=== PATIENT | male | born 1930 | race African-American/Black ===

== ENCOUNTER 2017-09-17 11:59 | Inpatient (IN) | payer MEDICARE ==
--- NOTE | 2017-09-17 12:59 | ER Document Report ---
ED Fall - General Chief Complaint: Hip Pain Stated Complaint: FALL Time Seen by Provider: 09/17/17 12:10 Information source: Patient Notes: 86-year-old male but states yesterday he fell onto his right low hip and knee taking the trash cans. He walks with a cane at baseline. He states he just lost his balance. He denies any headache, lightheadedness, dizziness, chest pain, abdominal pain, either before or after the fall. He denies hitting his head. He complains of pain only to his right hip, thigh, and knee. EMS came out to his house yesterday and helped him into the house. Patient states pain with ambulation since that time. He does have a prosthetic right hip. TRAVEL OUTSIDE OF THE [place] IN LAST 30 DAYS: No - HPI Occurred: Yesterday Where: Home, Outdoors Context: Lost balance Associated symptoms: denies: Dazed/confused Location of injury/pain: Other - See above Quality of pain: Achy, Burning Severity: Moderate Pain Level: 2 Prehospital interventions: Other - See above - Related data Allergies/Adverse Reactions: aspirin Adverse Reaction (Verified 09/17/17 12:30) Anaphylaxis Past Medical History - General Information source: Patient - Social History Smoking Status: Former Smoker Cigarette use (# per day): No Chew tobacco use (# tins/day): No Smoking Education Provided: No Frequency of alcohol use: None Drug Abuse: None Family History: Reviewed & Not Pertinent Patient has suicidal ideation: No Patient has homicidal ideation: No - Past Medical History Cardiac Medical History: Reports: Hx Hypertension Renal/ Medical History: Denies: Hx Peritoneal Dialysis Past Surgical History: Reports: Hx Cardiac Surgery - CABG Review of Systems - Review of Systems Constitutional: denies: Fever EENT: denies: Eye discharge, Blurred vision, Nose discharge Cardiovascular: denies: Chest pain, Palpitations Respiratory: denies: Short of breath Gastrointestinal: denies: Abdominal pain, Vomiting Genitourinary: denies: Dysuria Musculoskeletal: denies: Back pain Skin: Other - no hives. denies: Rash Neurological/Psychological: Other - no slurred speech -: Yes All other systems reviewed and negative Physical Exam - Vital signs Vitals: Temp Pulse Resp BP Pulse Ox 98.2 F 64 16 175/62 H 99 09/17/17 12:06 09/17/17 12:06 09/17/17 12:06 09/17/17 12:06 09/17/17 12:06 Notes: Reviewed vital signs and nursing note as charted by RN. CONSTITUTIONAL: Alert and oriented and responds appropriately to questions. Well -appearing; well-nourished HEAD: Normocephalic; atraumatic EYES: PERRL; full extraocular range of motion ENT: Normal nose; no rhinorrhea; moist mucous membranes; pharynx without lesions noted NECK: Supple without meningismus; non-tender; no carotid bruits CARD: Regular rate and rhythm; no murmurs RESP: Normal chest excursion without splinting or tachypnea; breath sounds clear and equal bilaterally; no tenderness to the anterior posterior ribs ABD/GI: Normal bowel sounds; non-distended; soft, non-tender, no abdominal bruits or masses present BACK: The back appears normal and is non-tender to palpation EXT: Patient has some tenderness to the right knee, thigh, and right anterior hip. No obvious deformities present. Tenderness with both active and passive range of motion. Neurovascular intact to the right foot SKIN: No acute lesions noted NEURO: Patient has 5 out of 5 bilateral foot plantar and flexor extension PSYCH: The patient's mood and manner are appropriate. Grooming and personal hygiene are appropriate. Course - Re-evaluation Re-evalutation: 09/17/17 12:58 Given the above history and physical examination I will order an x-ray of the right hip, right femur, and right knee. I do not believe any CT imaging of the head or cervical spine is necessary at this time. 09/17/17 14:09 X-rays as recorded. There appears to be a hip fracture to the proximal right femur lateral to the prosthesis. This is consistent with exam. Orthopedics has been consulted and patient will be admitted to the hospitalist service. - Vital Signs Vital signs: Temp Pulse Resp BP Pulse Ox 98.2 F 64 16 175/62 H 99 09/17/17 12:06 09/17/17 12:06 09/17/17 12:28 09/17/17 12:09/17/17 12:06 Discharge - Discharge Clinical Impression: Closed right hip fracture Qualifiers: Encounter type: initial encounter Qualified Code(s): S72.001A - Fracture of unspecified part of neck of right femur, initial encounter for closed fracture Accidental fall Qualifiers: Encounter type: initial encounter Qualified Code(s): W19.XXXA - Unspecified fall, initial encounter Condition: Good Disposition: ADMITTED INPATIENT Admitting Provider: Hospitalist Unit Admitted: Medical Floor
--- NOTE | 2017-09-17 13:11 | RADIOLOGY REPORT (SQ) ---
EXAM DESCRIPTION: HIP RIGHT AP/LATERAL COMPLETED DATE/TIME: 09/17/2017 1:00 pm REASON FOR STUDY: bed 7 right hip COMPARISON: None. NUMBER OF VIEWS: Two views. TECHNIQUE: AP pelvis and additional frog-leg view of the right hip. LIMITATIONS: None. FINDINGS: MINERALIZATION: Normal. RIGHT HIP: Patient is status post right total hip replacement. The prosthesis appears well seated in the acetabulum and proximal femoral medullary canal. There is cortical interruption at the level of the proximal femoral metaphysis which I cannot exclude as an acute fracture. LEFT HIP: No fracture or dislocation. No worrisome bone lesions. PUBIS AND ISCHIUM: No fracture. PELVIS: No fracture. SACRUM: No fracture or dislocation. No worrisome bone lesions. LOWER LUMBAR SPINE: Degenerative changes are identified in the lower lumbar spine. SOFT TISSUES: Soft tissue calcifications are identified adjacent to the right hip prosthesis. OTHER: No other significant finding. IMPRESSION: Status post right total hip replacement. There is cortical interruption at the level of the proximal femoral metaphysis which I cannot exclude as an acute fracture. Clinical correlation i s recommended. Other findings as noted above TECHNICAL DOCUMENTATION: JOB ID: [id number] [employer]- All Rights Reserved Reading location - IP/workstation name: [email or web address] DIRECTOR PARTY PLAN [email or web address]
--- NOTE | 2017-09-17 13:12 | RADIOLOGY REPORT (SQ) ---
EXAM DESCRIPTION: KNEE RIGHT 4 VIEWS COMPLETED DATE/TIME: 09/17/2017 1:00 pm REASON FOR STUDY: bed 7 s/p fall +deformity COMPARISON: None. NUMBER OF VIEWS: Three views. TECHNIQUE: AP, lateral, and both oblique radiographic images acquired of the right knee. LIMITATIONS: None. FINDINGS: MINERALIZATION: Osteopenia. BONES: No acute fracture or dislocation. No worrisome bone lesions. 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 JOINT: No effusion. No chondrocalcinosis. Mild age-appropriate degenerative compromise of the knee joint compartments. OTHER: No other significant finding. IMPRESSION: No acute posttraumatic change. TECHNICAL DOCUMENTATION: JOB ID: [id number] [employer]- All Rights Reserved Reading location - IP/workstation name: [email or web address]
--- NOTE | 2017-09-17 13:12 | RADIOLOGY REPORT (SQ) ---
EXAM DESCRIPTION: FEMUR RIGHT COMPLETED DATE/TIME: 09/17/2017 1:00 pm REASON FOR STUDY: 7; fall COMPARISON: None. NUMBER OF VIEWS: AP and lateral views of the the distal right femur were obtained. TECHNIQUE: Two radiographic images acquired of the right femur to include hip and knee in at least o ne projection. LIMITATIONS: None. FINDINGS: MINERALIZATION: Normal. BONES: No acute fracture. No worrisome bone lesions. SOFT TISSUES: No obvious swelling or foreign body. OTHER: The distal end of the femoral component of the right hip prosthesis is identified. IMPRESSION: No acute fracture dislocation involving the distal right femur. Other findings as noted above. TECHNICAL DOCUMENTATION: JOB ID: [id number] [employer]- All Rights Reserved Reading location - IP/workstation name: [email or web address]
[2017-09-17] MEDS ORDERED: MORPHINE SULFATE 10 MG/ML INJ IV ONE (14:26)
[2017-09-17 14:28] LABS: ABSOLUTE BASOPHILS # (AUTO) 0.1 10^3/uL (0.0-0.2); ABSOLUTE EOSINOPHILS # (AUTO) 0.2 10^3/uL (0.0-0.6); ABSOLUTE LYMPHOCYTES (AUTO) 0.7 10^3/uL (0.5-4.7); ABSOLUTE MONOCYTES (AUTO) 0.9 10^3/uL (0.1-1.4); ABSOLUTE NEUT (AUTO) 4.8 10^3/uL (1.7-8.2); EOSINOPHILS % (AUTO) 2.3 % (0-6); HEMATOCRIT 38.7 % (37.9-51.0); HEMOGLOBIN 12.4 g/dL (13.5-17.0); LYMPHOCYTES % (AUTO) 10.8 % (13-45); MEAN CORPUSCULAR HEMOGLOBIN 21.5 pg (27.0-33.4); MEAN CORPUSCULAR HGB CONC 31.9 g/dL (32.0-36.0); MEAN CORPUSCULAR VOLUME 67 fl (80-97); MONOCYTES % (AUTO) 12.9 % (3-13); PLATELET COUNT 197 10^3/uL (150-450); RED BLOOD COUNT 5.75 10^6/uL (4.35-5.55); RED CELL DISTRIBUTION WIDTH 16.6 % (11.5-14.0); TOTAL CELLS COUNTED % (AUTO) 100 %; WHITE BLOOD COUNT 6.6 10^3/uL (4.0-10.5)
[2017-09-17 14:48] LABS: ANION GAP 11 (5-19); BLOOD UREA NITROGEN 25 mg/dL (7-20); CALCIUM 9.8 mg/dL (8.4-10.2); CARBON DIOXIDE 25 mmol/L (22-30); CHLORIDE 112 mmol/L (98-107); GLUCOSE 95 mg/dL (75-110); POTASSIUM 3.9 mmol/L (3.6-5.0); SODIUM 147.6 mmol/L (137-145)
[2017-09-17 14:51] LABS: INTERNATIONAL RATION (INR) 1.02; PROTHROMBIN TIME 14.1 SEC (11.4-15.4)
[2017-09-17] MEDS ORDERED: MORPHINE SULFATE 10 MG/ML INJ IV PRN (15:35)
--- NOTE | 2017-09-17 15:51 | EKG REPORT ---
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 Recommend repeat EKG : Confirmed by: Gustabo Hinojosa 17-Sep-2017 15:50:52
--- NOTE | 2017-09-17 16:30 | PDOC CONSULTATION ---
Consultation Consult Date: 09/17/17 Attending physician:: AHMET QUISPE Consult reason:: Right hip fracture History of Present Illness Admission Date/PCP: 09/17/17 14:27 History of Present Illness: MARIANA MARIN is a 86 year old male who was admitted to the emergency department for possible fracture of right hip. Patient reports he was taking out his garbage cans on the night of September 16, 2017. The garbage can "got away from me", resulting in patient falling into a small ditch on the side of his house. Patient reports he landed on his right hip and the trashcan. Immediately after the fall he noted acute pain over his right hip and greater trochanter. He notes pain with weightbearing and prefers not to weight-bear because of this. No tingling or numbness noted. He waited to present to the emergency department until family could be present with him. In the room is his niece and her . Currently patient is experiencing pain but remains comfortable lying recumbent in hospital bed. Of note patient is hard of hearing. Past Medical History Cardiac Medical History: Reports: Hypertension Past Surgical History Past Surgical History: Reports: Hip Replacement, Orthopedic Surgery - History of right hip replacement Social History Smoking Status: Former Smoker Family History Family History: Reviewed & Not Pertinent Parental Family History Reviewed: No Children Family History Reviewed: NA Sibling(s) Family History Reviewed.: NA Medication/Allergy Home Medications: Amlodipine Besylate [Norvasc 10 mg Tablet] 10 mg PO DAILY 09/17/17 Carvedilol [Coreg 25 mg Tablet] 25 mg PO Q12 09/17/17 Clopidogrel Bisulfate [Clopidogrel] 75 mg PO DAILY 09/17/17 Furosemide [Lasix 40 mg Tablet] 40 mg PO DAILY 09/17/17 Isosorbide Mononitrate [Imdur 60 mg Tablet.er] 60 mg PO DAILY 09/17/17 Lisinopril [Prinivil 40 mg Tablet] 40 mg PO DAILY 09/17/17 Simvastatin [Zocor 20 mg Tablet] 20 mg PO QHS 09/17/17 Umeclidinium Brm/Vilanterol Tr [Anoro Ellipta 62.5-25 Mcg INH] 1 puff IH DAILY 09/17/17 Allergies/Adverse Reactions: aspirin Adverse Reaction (Verified 09/17/17 12:30) Anaphylaxis Review of Systems Ears: PRESENT: other - Patient hard of hearing Musculoskeletal: PRESENT: as per HPI Physical Exam Vital Signs: Temp Pulse Resp BP Pulse Ox 36.8 C 64 16 175/62 H 99 09/17/17 12:06 09/17/17 12:06 09/17/17 12:28 09/17/17 12:06 09/17/17 12:06 General appearance: PRESENT: no acute distress, well-developed, well-nourished Head exam: PRESENT: atraumatic, normocephalic Eye exam: PRESENT: EOMI Mouth exam: PRESENT: moist Pulses: PRESENT: normal dorsalis pedis pul, +2 pedal pulses bilateral Vascular exam: PRESENT: normal capillary refill Additional comments: Patient lying recumbent in hospital bed with bilateral lower extremities in full extension. He is tender to palpation along the proximal one third of the right femur. He is particularly tender just distally to the greater trochanter. There is no evidence of erythema, ecchymosis or induration. No superficial abrasions or drainage. Moderate edema present. He maintains full strength range of motion of distal joints including knee and ankles. He notes pain on initiation of motion of the hip in all directions. Therefore full range of motion was not able to be tested. +2 dorsalis pedis pulses distal neurovascular exam intact. Additional comments: Due to increased pain with weightbearing patient is currently nonambulatory. He can weight-bear however chooses not to. Patient reports that he could be comfortable using a walker to bear most of the weight on his upper extremities and/or a wheelchair so that he does not have to bear weight on lower extremity' s. No other sensory or motor deficits noted on lateral bilateral lower extremity's. Leg lengths equal distal neurovascular exam intact. Neurological exam: PRESENT: alert, awake, oriented to person, oriented to place , oriented to time, oriented to situation, CN II-XII grossly intact. ABSENT: motor sensory deficit Psychiatric exam: PRESENT: appropriate affect, normal mood. ABSENT: homicidal ideation, suicidal ideation Skin exam: PRESENT: dry, intact, warm, other - Moderate edema present over right greater trochanter as noted above.. ABSENT: cyanosis, rash Results Impressions: Hip/Pelvis X-Ray 09/17/17 00:00 IMPRESSION: Status post right total hip replacement. There is cortical interruption at the level of the proximal femoral metaphysis which I cannot exclude as an acute fracture. Clinical correlation is recommended. Other findings as noted above Knee X-Ray 09/17/17 00:00 IMPRESSION: No acute posttraumatic change. Femur X-Ray 09/17/17 12:23 IMPRESSION: No acute fracture dislocation involving the distal right femur. Other findings as noted above. Assessment & Plan - Diagnosis (1) Periprosthetic fracture around internal prosthetic right hip joint Qualifiers: Encounter type: initial encounter Qualified Code(s): M97.01XA - Periprosthetic fracture around internal prosthetic right hip joint, initial encounter; T84.040A - Periprosthetic fracture around internal prosthetic right hip joint, initial encounter Is this a current diagnosis for this admission?: Yes Plan: 86-year-old -[place] male who suffered a periprosthetic right hip fracture. X-ray imaging reveals preprosthetic fracture through the proximal metaphysis of the right femur, classified as a [place] class A periprosthetic fracture. Given class A calcification, patient will be treated nonoperatively at this point. We will order CT scan to assess for fracture configuration. At this time, it would be our recommendation that patient remain non-weight bearing until follow-up appointment at [facility] for surgery with Dr. Gaytan. Any further workup and management will be determined by Dr. Gaytan at this follow-up appointment. We recommend patient be discharged with anti- inflammatories, possible short course of narcotic pain medication, as well as wheeled walker and/or wheelchair to maximize mobility. If his pain is well controlled in ED, he may not require admission to the hospital overnight. We would like to thank you for consultation for the continued care of this patient.
--- NOTE | 2017-09-17 16:35 | RADIOLOGY REPORT (SQ) ---
EXAM DESCRIPTION: CT RT LOWER EXTREMITY WITHOUT COMPLETED DATE/TIME: 09/17/2017 3:53 pm REASON FOR STUDY: Right femur fracture COMPARISON: None. TECHNIQUE: CT scan of the right hip performed without intravenous or oral contrast. Images reviewed with soft tissue and bone windows. Reconstructed coronal and sagittal MPR images reviewed. All sravan ges stored on PACS. All CT scanners at this facility use dose modulation, iterative reconstruction, and/or weight based d osing when appropriate to reduce radiation dose to as low as reasonably achievable (ALARA). [facility]: Dose Right [facility]: CareDose [facility]: Dose Right [facility]: Teradose 4D [facility]: Smart vocaltap RADIATION DOSE: CT Rad equipment meets quality standard of care and radiation dose reduction techniq ues were employed. CTDIvol: 4.1 mGy. DLP: 231 mGy-cm. mGy. LIMITATIONS: Beam hardening artifact from right hip arthroplasty. FINDINGS: PELVIC BONES: No acute fracture. No worrisome bone lesions. VISUALIZED SPINE: No acute findings. SYMPTOMATIC HIP: Once again there is cortical disruption in the proximal femur. This is seen lateral ly. There does not appear to be significant soft tissue hematoma associated with this. OPPOSITE HIP: Not included. PELVIC SOFT TISSUES: Urinary bladder is distended. EXTRAPELVIC SOFT TISSUES: No significant findings. OTHER: No other significant finding. IMPRESSION: Cortical disruption in the proximal femur may suggest an acute fracture. However, there does not appear to be significant associated hematoma. However, this area is poorly seen because of the amount of artifact present. TECHNICAL DOCUMENTATION: JOB ID: [id number] Quality ID # [id number]: Final reports with documentation of one or more dose reduction techniques (e.g., Au tomated exposure control, adjustment of the mA and/or kV according to patient size, use of iterative reconstruction technique) 2010 [employer]- All Rights Reserved Reading location - IP/workstation name: [email or web address]
--- NOTE | 2017-09-17 16:51 | PDOC H&P ---
History of Present Illness Admission Date/PCP: 09/17/17 14:27 Patient complains of: R hip pain History of Present Illness: MARIANA MARIN is a 86 year old male who presents to the emergency department for right hip pain following a fall. The patient reports he tripped and fell yesterday while taking out the trash. He denies head trauma or loss of consciousness. EMS was called to the house but the patient refused transport to the hospital. The patient slept overnight in a wheelchair. The patient's called EMS this morning because the patient was unable to ambulate due to right hip pain. PMH includes right hip replacement, HTN, HLD, CVA, glaucoma, four-vessel CABG, left carotid stenosis/endarterectomy. In the emergency department, the patient's vital signs are all stable. He received 4 mg IV morphine. At the time of assessment, the patient denied right hip pain. External rotation and shortening of the right lower extremity. +1 DP and PT pulses in RLE. Good sensation in RLE. Orthopedics states that the patient 's case is non-operative. Past Medical History Cardiac Medical History: Reports: Hypertension Cardiac History Note: CAROTID STENOSIS Neurological Medical History: Reports: Ischemic CVA Psychiatric Medical History: Reports: None Traumatic Medical History: Reports: None Past Surgical History Past Surgical History: Reports: Coronary Artery Bypass Graft - 4 vessel, Hip Replacement Social History Lives with: Spouse/Significant other Smoking Status: Former Smoker Frequency of Alcohol Use: None Hx Recreational Drug Use: No Drugs: None Hx Prescription Drug Abuse: No Family History Family History: Reviewed & Not Pertinent, Other - glaucoma Parental Family History Reviewed: Yes - poor historian Children Family History Reviewed: No Sibling(s) Family History Reviewed.: No Medication/Allergy Home Medications: Amlodipine Besylate [Norvasc 10 mg Tablet] 10 mg PO DAILY 09/17/17 Carvedilol [Coreg 25 mg Tablet] 25 mg PO Q12 09/17/17 Clopidogrel Bisulfate [Clopidogrel] 75 mg PO DAILY 09/17/17 Furosemide [Lasix 40 mg Tablet] 40 mg PO DAILY 09/17/17 Isosorbide Mononitrate [Imdur 60 mg Tablet.er] 60 mg PO DAILY 09/17/17 Lisinopril [Prinivil 40 mg Tablet] 40 mg PO DAILY 09/17/17 Simvastatin [Zocor 20 mg Tablet] 20 mg PO QHS 09/17/17 Umeclidinium Brm/Vilanterol Tr [Anoro Ellipta 62.5-25 Mcg INH] 1 puff IH DAILY 09/17/17 Allergies/Adverse Reactions: aspirin Adverse Reaction (Verified 09/17/17 12:30) Anaphylaxis Review of Systems Eyes: ABSENT: visual disturbances Nose, Mouth, and Throat: ABSENT: headache(s), vertigo Musculoskeletal: PRESENT: deformity - RLE external rotation and shortening Neurological: PRESENT: abnormal gait - PATIENT REPORTS HE IS UNABLE TO AMBULATE S/P FALL Physical Exam Vital Signs: Temp Pulse Resp BP Pulse Ox 98.2 F 64 16 175/62 H 99 09/17/17 12:06 09/17/17 12:06 09/17/17 12:28 09/17/17 12:06 09/17/17 12:06 General appearance: PRESENT: no acute distress, well-developed, well-nourished Eye exam: PRESENT: conjunctiva pink, other - BLIND IN L EYE Mouth exam: PRESENT: moist Neck exam: PRESENT: full ROM Respiratory exam: PRESENT: clear to auscultation trinity, symmetrical, unlabored Cardiovascular exam: PRESENT: +S1, +S2 Pulses: PRESENT: normal radial pulses, normal dorsalis pedis pul Vascular exam: PRESENT: normal capillary refill GI/Abdominal exam: PRESENT: normal bowel sounds, soft Rectal exam: PRESENT: deferred Extremities exam: PRESENT: +1 edema Musculoskeletal exam: PRESENT: deformity - RLE external rotation and shortening. ABSENT: ambulatory Neurological exam: PRESENT: alert, awake, oriented to person, oriented to place , oriented to time, oriented to situation Psychiatric exam: PRESENT: appropriate affect Skin exam: PRESENT: normal color, warm Results Impressions: Hip/Pelvis X-Ray 09/17/17 00:00 IMPRESSION: Status post right total hip replacement. There is cortical interruption at the level of the proximal femoral metaphysis which I cannot exclude as an acute fracture. Clinical correlation is recommended. Other findings as noted above Knee X-Ray 09/17/17 00:00 IMPRESSION: No acute posttraumatic change. Femur X-Ray 09/17/17 12:23 IMPRESSION: No acute fracture dislocation involving the distal right femur. Other findings as noted above. Status: Imported from PACS Assessment & Plan - Diagnosis (1) Closed right hip fracture Qualifiers: Encounter type: initial encounter Qualified Code(s): S72.001A - Fracture of unspecified part of neck of right femur, initial encounter for closed fracture Is this a current diagnosis for this admission?: Yes Plan: Right hip fracture S/P FALL Hip X-ray shows cortical interruption at the level of the proximal femoral metaphysis. Plan for follow up CT of RLE to obtain better visualization of fracture Admit for pain control - initiate PRN tylenol for pain 1-2 & PRN Morphine IV for pain 3-5 Non-operative per Othro. Non-weight bearing for (at least) 2 weeks May require acute rehab following discharge from [facility] due to social situation - patient lives at home with his elderly who is in a wheelchair (2) CAD (coronary artery disease) Qualifiers: Coronary Disease-Associated Artery/Lesion type: bypass graft [place] vs. transplanted heart: [place] heart Associated angina: without angina Qualified Code(s): I25.810 - Atherosclerosis of coronary artery bypass graft(s) without angina pectoris Is this a current diagnosis for this admission?: Yes Plan: Patient has a history of coronary artery disease and four-vessel CABG. Continue home dose of Plavix, statin, and antihypertensives. (3) DVT prophylaxis Is this a current diagnosis for this admission?: Yes Plan: Given the patient's immobility, SCDs and Heparin SC for DVT prophylaxis. - Time Critical Time spent with patient: 15-24 minutes Anticipated discharge: Home - Inpatient Certification Based on my medical assessment, after consideration of the patient's comorbidities, presenting symptoms, or acuity I expect that the services needed warrant INPATIENT care.: Yes I certify that my determination is in accordance with my understanding of Medicare's requirements for reasonable and necessary INPATIENT services [42 CFR 412.3e].: Yes Medical Necessity: Risk of Complication if Not Cared For in Hospital - Plan Summary Plan Summary: The plan is to discharge the patient with orthopedic follow-up. Could potentially require acute rehab.
[2017-09-17] MEDS ORDERED: ACETAMINOPHEN 325 MG TABLET PO PRN (16:54)
[2017-09-17] MEDS ORDERED: ONDANSETRON 4 MG TAB.RAPDIS SL PRN (18:13)
[2017-09-17] MEDS ORDERED: 1/2 NORMAL SALINE 1,000 ML IV PRN (20:03)
[2017-09-17] MEDS: SIMVASTATIN 10 MG TABLET PO SCH (21:56)
[2017-09-17] MEDS: HEPARIN SOD (PORCINE) 5,000 UNIT/ML 1 ML SYRINGE SUBCUT SCH (21:56)
[2017-09-17] MEDS: CARVEDILOL 12.5 MG TABLET PO SCH (21:56)
[2017-09-18] MEDS: HEPARIN SOD (PORCINE) 5,000 UNIT/ML 1 ML SYRINGE SUBCUT SCH ×3 (05:50→21:50)
[2017-09-18 08:34] LABS: ABSOLUTE BASOPHILS # (AUTO) 0.1 10^3/uL (0.0-0.2); ABSOLUTE EOSINOPHILS # (AUTO) 0.1 10^3/uL (0.0-0.6); ABSOLUTE LYMPHOCYTES (AUTO) 0.8 10^3/uL (0.5-4.7); ABSOLUTE MONOCYTES (AUTO) 0.9 10^3/uL (0.1-1.4); ABSOLUTE NEUT (AUTO) 5.1 10^3/uL (1.7-8.2); BASOPHILS % (AUTO) 1.2 % (0-2); EOSINOPHILS % (AUTO) 1.1 % (0-6); HEMATOCRIT 39.7 % (37.9-51.0); HEMOGLOBIN 12.6 g/dL (13.5-17.0); LYMPHOCYTES % (AUTO) 11.3 % (13-45); MEAN CORPUSCULAR HEMOGLOBIN 21.4 pg (27.0-33.4); MEAN CORPUSCULAR HGB CONC 31.9 g/dL (32.0-36.0); MEAN CORPUSCULAR VOLUME 67 fl (80-97); MONOCYTES % (AUTO) 13.3 % (3-13); PLATELET COUNT 181 10^3/uL (150-450); RED BLOOD COUNT 5.89 10^6/uL (4.35-5.55); RED CELL DISTRIBUTION WIDTH 16.4 % (11.5-14.0); SEGMENTED NEUTROPHILS % (AUTO) 73.1 % (42-78); TOTAL CELLS COUNTED % (AUTO) 100 %
[2017-09-18 08:47] LABS: BLOOD UREA NITROGEN 21 mg/dL (7-20); CALCIUM 9.7 mg/dL (8.4-10.2); CHLORIDE 114 mmol/L (98-107); GLUCOSE 93 mg/dL (75-110); PHOSPHORUS 3.3 mg/dL (2.5-4.5); POTASSIUM 4.4 mmol/L (3.6-5.0); SODIUM 145.6 mmol/L (137-145)
[2017-09-18 08:50] LABS: ANION GAP 8 (5-19); CARBON DIOXIDE 24 mmol/L (22-30)
[2017-09-18] MEDS: CLOPIDOGREL BISULFATE 75 MG TABLET PO SCH (09:15)
[2017-09-18] MEDS: LISINOPRIL 10 MG TABLET PO SCH (09:16)
[2017-09-18] MEDS: TRAMADOL HCL 50 MG TABLET PO PRN ×2 (09:16→18:05)
[2017-09-18] MEDS: AMLODIPINE BESYLATE 10 MG TABLET PO SCH (09:17)
[2017-09-18] MEDS: FUROSEMIDE 40 MG TABLET PO SCH (09:18)
[2017-09-18] MEDS: CARVEDILOL 12.5 MG TABLET PO SCH ×2 (09:18→21:50)
[2017-09-18] MEDS: ISOSORBIDE MONONITRATE 60 MG TAB.ER.24H PO SCH (09:18)
[2017-09-18] MEDS ORDERED: (PENDING PHARMACY ID) (Umeclidinium Brm/Vilanterol Tr [Anoro Ellipta 62.5-25 Mcg Inh] 1 PU IH SCH (10:00)
--- NOTE | 2017-09-18 17:15 | PDOC PROGRESS REPORT ---
Subjective Progress Note for:: 09/18/17 Subjective:: MARIANA MARIN is a 86 year old male admitted for right proximal femur fracture following a trip and fall at home. Evaluated by orthopedics, they have deemed his case nonoperative. Plan to manage the patient's pain and discharged to acute rehab. Patient seen this morning on rounds, he has no complaints at this time. He denies right hip pain, states he only experiences moderate pain upon movement. Otherwise he is comfortable laying in the bed. Reason For Visit: R FEMURE FRACTURE Physical Exam Vital Signs: Temp Pulse Resp BP Pulse Ox 98.5 F 68 18 116/65 98 09/18/17 15:55 09/18/17 15:55 09/18/17 15:55 09/18/17 15:55 09/18/17 15:55 Intake & Output 09/17/17 09/18/17 09/19/17 06:59 06:59 06:59 Intake Total 545 Output Total 1360 Balance -815 Weight 64.9 kg General appearance: PRESENT: no acute distress Head exam: PRESENT: atraumatic Eye exam: PRESENT: conjunctiva pink Mouth exam: PRESENT: moist Neck exam: PRESENT: full ROM, other - History of left carotid endarterectomy Respiratory exam: PRESENT: clear to auscultation trinity, symmetrical, unlabored Cardiovascular exam: PRESENT: +S1, +S2 Pulses: PRESENT: normal radial pulses, normal dorsalis pedis pul GI/Abdominal exam: PRESENT: normal bowel sounds, soft Rectal exam: PRESENT: deferred Extremities exam: PRESENT: pedal edema, +1 edema Musculoskeletal exam: PRESENT: deformity - External rotation and shortening of the right lower extremity, other - Range of motion significantly decreased at the right hip. Full range of motion noted of the right knee and right ankle Neurological exam: PRESENT: alert, awake, oriented to person, oriented to place , oriented to time, oriented to situation Psychiatric exam: PRESENT: appropriate affect Skin exam: PRESENT: normal color Results Laboratory Results: 09/18/17 08:19 09/18/17 08:19 09/18/17 09/18/17 08:19 08:19 WBC 7.0 RBC 5.89 H Hgb 12.6 L Hct 39.7 MCV 67 L MCH 21.4 L MCHC 31.9 L RDW 16.4 H Plt Count 181 Seg Neutrophils % 73.1 Lymphocytes % 11.3 L Monocytes % 13.3 H Eosinophils % 1.1 Basophils % 1.2 Absolute Neutrophils 5.1 Absolute Lymphocytes 0.8 Absolute Monocytes 0.9 Absolute Eosinophils 0.1 Absolute Basophils 0.1 Sodium 145.6 H Potassium 4.4 Chloride 114 H Carbon Dioxide 24 Anion Gap 8 BUN 21 H Creatinine 0.98 Est GFR ( Amer) > 60 Est GFR (Non-Af Amer) > 60 Glucose 93 Calcium 9.7 Phosphorus 3.3 Magnesium 2.1 09/18/17 08:19 NT-Pro-B Natriuret Pep 2120 H Impressions: Hip/Pelvis X-Ray 09/17/17 00:00 IMPRESSION: Status post right total hip replacement. There is cortical interruption at the level of the proximal femoral metaphysis which I cannot exclude as an acute fracture. Clinical correlation is recommended. Other findings as noted above Knee X-Ray 09/17/17 00:00 IMPRESSION: No acute posttraumatic change. Lower Extremity CT 09/17/17 00:00 IMPRESSION: Cortical disruption in the proximal femur may suggest an acute fracture. However, there does not appear to be significant associated hematoma. However, this area is poorly seen because of the amount of artifact present. Femur X-Ray 09/17/17 12:23 IMPRESSION: No acute fracture dislocation involving the distal right femur. Other findings as noted above. Status: Imported from PACS Assessment & Plan - Diagnosis (1) Closed right hip fracture Qualifiers: Encounter type: initial encounter Qualified Code(s): S72.001A - Fracture of unspecified part of neck of right femur, initial encounter for closed fracture Is this a current diagnosis for this admission?: Yes Plan: Right hip fracture S/P FALL Hip X-ray shows cortical interruption at the level of the proximal femoral metaphysis. CT of RLE shows cortical disruption in the promximal femur, no evidence of surrounding hematoma Admit for pain control - initiate PRN tylenol for pain 1-2, PRN Ultram for pain 3-4, PRN Morphine IV for pain 5 Non-operative per Othro. Non-weight bearing for (at least) 2 weeks Will require acute rehab following discharge from [facility] due to social situation - patient lives at home with his elderly who is in a wheelchair (2) CAD (coronary artery disease) Qualifiers: Coronary Disease-Associated Artery/Lesion type: bypass graft [place] vs. transplanted heart: [place] heart Associated angina: without angina Qualified Code(s): I25.810 - Atherosclerosis of coronary artery bypass graft(s) without angina pectoris Is this a current diagnosis for this admission?: Yes Plan: Patient has a history of coronary artery disease and four-vessel CABG. Continue home dose of Plavix, statin, and antihypertensives. (3) DVT prophylaxis Is this a current diagnosis for this admission?: Yes Plan: Given the patient's immobility, SCDs and Heparin SC for DVT prophylaxis. - Time Time Spent with patient: 15-24 minutes Medications reviewed and adjusted accordingly: Yes Anticipated discharge: Acute Rehab Within: within 48 hours - Inpatient Certification Based on my medical assessment, after consideration of the patient's comorbidities, presenting symptoms, or acuity I expect that the services needed warrant INPATIENT care.: Yes I certify that my determination is in accordance with my understanding of Medicare's requirements for reasonable and necessary INPATIENT services [42 CFR 412.3e].: Yes Medical Necessity: Risk of Complication if Not Cared For in Hospital - Plan Summary Plan Summary: Discharge to acute rehab
[2017-09-18] MEDS: SIMVASTATIN 10 MG TABLET PO SCH (21:50)
[2017-09-19] MEDS: HEPARIN SOD (PORCINE) 5,000 UNIT/ML 1 ML SYRINGE SUBCUT SCH ×3 (05:37→22:37)
[2017-09-19 09:38] LABS: ABSOLUTE EOSINOPHILS # (AUTO) 0.3 10^3/uL (0.0-0.6); ABSOLUTE LYMPHOCYTES (AUTO) 0.9 10^3/uL (0.5-4.7); ABSOLUTE MONOCYTES (AUTO) 0.7 10^3/uL (0.1-1.4); ABSOLUTE NEUT (AUTO) 3.9 10^3/uL (1.7-8.2); BASOPHILS % (AUTO) 0.6 % (0-2); EOSINOPHILS % (AUTO) 5.7 % (0-6); HEMOGLOBIN 11.9 g/dL (13.5-17.0); LYMPHOCYTES % (AUTO) 15.8 % (13-45); MEAN CORPUSCULAR HEMOGLOBIN 21.3 pg (27.0-33.4); MEAN CORPUSCULAR HGB CONC 31.2 g/dL (32.0-36.0); MEAN CORPUSCULAR VOLUME 68 fl (80-97); MONOCYTES % (AUTO) 12.3 % (3-13); PLATELET COUNT 182 10^3/uL (150-450); RED BLOOD COUNT 5.57 10^6/uL (4.35-5.55); RED CELL DISTRIBUTION WIDTH 16.3 % (11.5-14.0); SEGMENTED NEUTROPHILS % (AUTO) 65.6 % (42-78); TOTAL CELLS COUNTED % (AUTO) 100 %; WHITE BLOOD COUNT 5.9 10^3/uL (4.0-10.5)
[2017-09-19 10:01] LABS: ANION GAP 10 (5-19); BLOOD UREA NITROGEN 33 mg/dL (7-20); CALCIUM 9.8 mg/dL (8.4-10.2); CARBON DIOXIDE 25 mmol/L (22-30); CHLORIDE 108 mmol/L (98-107); GLUCOSE 111 mg/dL (75-110); POTASSIUM 4.2 mmol/L (3.6-5.0); SODIUM 142.8 mmol/L (137-145)
[2017-09-19] MEDS: AMLODIPINE BESYLATE 10 MG TABLET PO SCH (11:35)
[2017-09-19] MEDS: FUROSEMIDE 40 MG TABLET PO SCH (11:35)
[2017-09-19] MEDS: CLOPIDOGREL BISULFATE 75 MG TABLET PO SCH (11:36)
[2017-09-19] MEDS: ISOSORBIDE MONONITRATE 60 MG TAB.ER.24H PO SCH (11:36)
[2017-09-19] MEDS: LISINOPRIL 10 MG TABLET PO SCH (11:36)
[2017-09-19] MEDS: CARVEDILOL 12.5 MG TABLET PO SCH ×2 (11:37→22:37)
--- NOTE | 2017-09-19 11:59 | Physician Advisory Note ---
Physician Advisor ProgressNote .: Pursuant to the plan for [facility], I have reviewed the medical record for this patient. Physician Advisor Statement: Please consider documenting, if you agree: 1. "Acute hypernatremia, suspect due to , now resolved" [intravascular volume depletion?] 2. Medical necessity: Each night in hospital needs documentation of reason(s) pt can't yet safely be d/c'd. If concerned about worsening renal fn or other acute issue since arrival, please document this & what doing about it - see below, with adjustment of patient status accordingly. R.e. status: Medicare pt, approp for Obs initially (only needing po meds & skilled nursing type care). However, if another acute issue develops, such as acutely worsening renal function (even "Acute Kidney Injury", if highest Cr is 1.5 times the lowest Cr, i.e. Cr of 1.47 if lowest Cr is 0.98), which is concerning to attending and requires further eval/monitoring/tx for an extra night, then attending may document this and change status to Inpatient after all. - If "ATN due to " is suspected, please document that, too. Thanks! CK
--- NOTE | 2017-09-19 16:05 | PDOC PROGRESS REPORT ---
Subjective Progress Note for:: 09/19/17 Subjective:: MARIANA MARIN is a 86 year old male admitted for right proximal femur fracture following a trip and fall at home. Evaluated by orthopedics, they have deemed his case nonoperative. Plan to manage the patient's pain and discharged to acute rehab. Patient seen this morning on rounds, he has no complaints at this time. He denies right hip pain, states he only experiences moderate pain upon movement. Otherwise he is comfortable laying in the bed. Reason For Visit: RIGHT FRACTURED FEMUR Physical Exam Vital Signs: Temp Pulse Resp BP Pulse Ox 97.4 F 57 L 16 100/51 L 99 09/19/17 15:36 09/19/17 15:36 09/19/17 15:36 09/19/17 15:36 09/19/17 15:36 Intake & Output 09/18/17 09/19/17 09/20/17 06:59 06:59 06:59 Intake Total 545 1600 1005 Output Total 1360 725 Balance -618 229 7701 Weight 64.9 kg Results Laboratory Results: 09/19/17 09:24 09/19/17 09:24 09/19/17 09/19/17 09/19/17 09:24 09:24 09:24 WBC 5.9 RBC 5.57 H Hgb 11.9 L Hct 38.0 MCV 68 L MCH 21.3 L MCHC 31.2 L RDW 16.3 H Plt Count 182 Seg Neutrophils % 65.6 Lymphocytes % 15.8 Monocytes % 12.3 Eosinophils % 5.7 Basophils % 0.6 Absolute Neutrophils 3.9 Absolute Lymphocytes 0.9 Absolute Monocytes 0.7 Absolute Eosinophils 0.3 Absolute Basophils 0.0 Sodium 142.8 Potassium 4.2 Chloride 108 H Carbon Dioxide 25 Anion Gap 10 BUN 33 H Creatinine 1.40 H Est GFR ( Amer) 58 L Est GFR (Non-Af Amer) 48 L Glucose 111 H Calcium 9.8 Phosphorus 4.7 H Magnesium 2.1 09/18/17 08:19 NT-Pro-B Natriuret Pep 2120 H Impressions: Hip/Pelvis X-Ray 09/17/17 00:00 IMPRESSION: Status post right total hip replacement. There is cortical interruption at the level of the proximal femoral metaphysis which I cannot exclude as an acute fracture. Clinical correlation is recommended. Other findings as noted above Knee X-Ray 09/17/17 00:00 IMPRESSION: No acute posttraumatic change. Lower Extremity CT 09/17/17 00:00 IMPRESSION: Cortical disruption in the proximal femur may suggest an acute fracture. However, there does not appear to be significant associated hematoma. However, this area is poorly seen because of the amount of artifact present. Femur X-Ray 09/17/17 12:23 IMPRESSION: No acute fracture dislocation involving the distal right femur. Other findings as noted above. Assessment & Plan - Diagnosis (1) Closed right hip fracture Qualifiers: Encounter type: initial encounter Qualified Code(s): S72.001A - Fracture of unspecified part of neck of right femur, initial encounter for closed fracture Is this a current diagnosis for this admission?: Yes Plan: Right hip fracture S/P FALL Hip X-ray shows cortical interruption at the level of the proximal femoral metaphysis. CT of RLE shows cortical disruption in the promximal femur, no evidence of surrounding hematoma Admit for pain control - initiate PRN tylenol for pain 1-2, PRN Ultram for pain 3-4, PRN Morphine IV for pain 5 Non-operative per Othro. Non-weight bearing for (at least) 2 weeks Will require acute rehab following discharge from [facility] due to social situation - patient lives at home with his elderly who is in a wheelchair (2) CAD (coronary artery disease) Qualifiers: Coronary Disease-Associated Artery/Lesion type: bypass graft [place] vs. transplanted heart: [place] heart Associated angina: without angina Qualified Code(s): I25.810 - Atherosclerosis of coronary artery bypass graft(s) without angina pectoris Is this a current diagnosis for this admission?: Yes Plan: Patient has a history of coronary artery disease and four-vessel CABG. Continue home dose of Plavix, statin, and antihypertensives. (3) DVT prophylaxis Is this a current diagnosis for this admission?: Yes Plan: Given the patient's immobility, SCDs and Heparin SC for DVT prophylaxis. (4) Hypernatremia Is this a current diagnosis for this admission?: Yes Plan: Acute HYPERnatremia secondary to intravascular volume depletion. Discontinue Lasix. Initiate half-normal saline at 75 cc an hour. (5) HAILY (acute kidney injury) Is this a current diagnosis for this admission?: Yes Plan: Acute kidney injury likely secondary to intravascular volume depletion. Discontinue Lasix. Initiate half normal saline at 75 cc an hour. Monitor urine output closely. - Time Time Spent with patient: 15-24 minutes Medications reviewed and adjusted accordingly: Yes Anticipated discharge: Acute Rehab Within: within 48 hours - Inpatient Certification Based on my medical assessment, after consideration of the patient's comorbidities, presenting symptoms, or acuity I expect that the services needed warrant INPATIENT care.: Yes I certify that my determination is in accordance with my understanding of Medicare's requirements for reasonable and necessary INPATIENT services [42 CFR 412.3e].: Yes Medical Necessity: Need For IV Fluids, Risk of Complication if Not Cared For in Hospital - Plan Summary Plan Summary: This patient was initially admitted for observation status, only needing p.o. medication and pain control. However, in light of the acute HYPERnatremia and HAILY (likely due to inravascular volume depletion), this patient requires further evaluation and monitoring for an extra night
[2017-09-19] MEDS: 1/2 NORMAL SALINE 1,000 ML IV PRN (16:24)
[2017-09-19] MEDS: SIMVASTATIN 10 MG TABLET PO SCH (22:37)
[2017-09-20] MEDS: HEPARIN SOD (PORCINE) 5,000 UNIT/ML 1 ML SYRINGE SUBCUT SCH ×3 (05:46→22:09)
[2017-09-20 10:24] LABS: ABSOLUTE EOSINOPHILS # (AUTO) 0.4 10^3/uL (0.0-0.6); ABSOLUTE LYMPHOCYTES (AUTO) 0.6 10^3/uL (0.5-4.7); ABSOLUTE MONOCYTES (AUTO) 0.7 10^3/uL (0.1-1.4); ABSOLUTE NEUT (AUTO) 3.8 10^3/uL (1.7-8.2); BASOPHILS % (AUTO) 0.4 % (0-2); EOSINOPHILS % (AUTO) 6.9 % (0-6); HEMATOCRIT 35.9 % (37.9-51.0); HEMOGLOBIN 11.4 g/dL (13.5-17.0); LYMPHOCYTES % (AUTO) 10.7 % (13-45); MEAN CORPUSCULAR HEMOGLOBIN 21.4 pg (27.0-33.4); MEAN CORPUSCULAR HGB CONC 31.7 g/dL (32.0-36.0); MEAN CORPUSCULAR VOLUME 68 fl (80-97); MONOCYTES % (AUTO) 12.3 % (3-13); PLATELET COUNT 198 10^3/uL (150-450); RED BLOOD COUNT 5.31 10^6/uL (4.35-5.55); RED CELL DISTRIBUTION WIDTH 16.6 % (11.5-14.0); SEGMENTED NEUTROPHILS % (AUTO) 69.7 % (42-78); TOTAL CELLS COUNTED % (AUTO) 100 %; WHITE BLOOD COUNT 5.5 10^3/uL (4.0-10.5)
[2017-09-20 10:43] LABS: ANION GAP 8 (5-19); BLOOD UREA NITROGEN 33 mg/dL (7-20); CALCIUM 9.2 mg/dL (8.4-10.2); CARBON DIOXIDE 26 mmol/L (22-30); CHLORIDE 105 mmol/L (98-107); GLUCOSE 115 mg/dL (75-110); PHOSPHORUS 4.2 mg/dL (2.5-4.5); POTASSIUM 4.1 mmol/L (3.6-5.0); SODIUM 138.9 mmol/L (137-145)
[2017-09-20] MEDS: ISOSORBIDE MONONITRATE 60 MG TAB.ER.24H PO SCH (12:42)
[2017-09-20] MEDS: AMLODIPINE BESYLATE 10 MG TABLET PO SCH (12:42)
[2017-09-20] MEDS: CLOPIDOGREL BISULFATE 75 MG TABLET PO SCH (12:42)
[2017-09-20] MEDS: CARVEDILOL 12.5 MG TABLET PO SCH ×2 (12:42→22:09)
[2017-09-20] MEDS: LISINOPRIL 10 MG TABLET PO SCH (12:42)
--- NOTE | 2017-09-20 15:15 | PDOC PROGRESS REPORT ---
Subjective Progress Note for:: 09/20/17 Subjective:: MARIANA MARIN is a 86 year old male admitted for right proximal femur fracture following a trip and fall at home. Evaluated by orthopedics, they have deemed his case nonoperative. Plan to manage the patient's pain and discharged to acute rehab. Patient seen this morning on rounds, he has no complaints at this time. He denies right hip pain, states he only experiences moderate pain upon movement. Otherwise he is comfortable laying in the bed. Reason For Visit: RIGHT FEMUR FRACTURE, HYPERNATREMIA Physical Exam Vital Signs: Temp Pulse Resp BP Pulse Ox 97.6 F 61 17 136/65 H 100 09/20/17 08:14 09/20/17 08:14 09/20/17 08:14 09/20/17 08:14 09/20/17 08:14 Intake & Output 09/19/17 09/20/17 09/21/17 06:59 06:59 06:59 Intake Total 1438 Output Total 800 Balance 638 General appearance: PRESENT: no acute distress Head exam: PRESENT: atraumatic Eye exam: PRESENT: conjunctiva pink Mouth exam: PRESENT: moist Neck exam: PRESENT: full ROM Respiratory exam: PRESENT: clear to auscultation trinity, symmetrical, unlabored Cardiovascular exam: PRESENT: +S1, +S2 Pulses: PRESENT: normal radial pulses, +1 pedal pulses bilateral Vascular exam: PRESENT: normal capillary refill GI/Abdominal exam: PRESENT: normal bowel sounds, soft Rectal exam: PRESENT: deferred Gentrourinary exam: PRESENT: indwelling catheter - placed 09/18 for urinary retention Extremities exam: ABSENT: joint swelling Musculoskeletal exam: PRESENT: normal inspection, tenderness - R hip TTP Neurological exam: PRESENT: alert, awake, oriented to person, oriented to place , oriented to time, oriented to situation Psychiatric exam: PRESENT: appropriate affect Skin exam: PRESENT: normal color Results Laboratory Results: 09/20/17 09:57 09/20/17 09:57 09/20/17 09/20/17 09:57 09:57 WBC 5.5 RBC 5.31 Hgb 11.4 L Hct 35.9 L MCV 68 L MCH 21.4 L MCHC 31.7 L RDW 16.6 H Plt Count 198 Seg Neutrophils % 69.7 Lymphocytes % 10.7 L Monocytes % 12.3 Eosinophils % 6.9 H Basophils % 0.4 Absolute Neutrophils 3.8 Absolute Lymphocytes 0.6 Absolute Monocytes 0.7 Absolute Eosinophils 0.4 Absolute Basophils 0.0 Sodium 138.9 Potassium 4.1 Chloride 105 Carbon Dioxide 26 Anion Gap 8 BUN 33 H Creatinine 1.05 Est GFR ( Amer) > 60 Est GFR (Non-Af Amer) > 60 Glucose 115 H Calcium 9.2 Phosphorus 4.2 Magnesium 1.7 Impressions: Hip/Pelvis X-Ray 09/17/17 00:00 IMPRESSION: Status post right total hip replacement. There is cortical interruption at the level of the proximal femoral metaphysis which I cannot exclude as an acute fracture. Clinical correlation is recommended. Other findings as noted above Knee X-Ray 09/17/17 00:00 IMPRESSION: No acute posttraumatic change. Lower Extremity CT 09/17/17 00:00 IMPRESSION: Cortical disruption in the proximal femur may suggest an acute fracture. However, there does not appear to be significant associated hematoma. However, this area is poorly seen because of the amount of artifact present. Femur X-Ray 09/17/17 12:23 IMPRESSION: No acute fracture dislocation involving the distal right femur. Other findings as noted above. Status: Imported from PACS Assessment & Plan - Diagnosis (1) Closed right hip fracture Qualifiers: Encounter type: initial encounter Qualified Code(s): S72.001A - Fracture of unspecified part of neck of right femur, initial encounter for closed fracture Is this a current diagnosis for this admission?: Yes Plan: Right hip fracture S/P FALL Hip X-ray shows cortical interruption at the level of the proximal femoral metaphysis. CT of RLE shows cortical disruption in the promximal femur, no evidence of surrounding hematoma Admit for pain control - initiate PRN tylenol for pain 1-2, PRN Ultram for pain 3-4, PRN Morphine IV for pain 5 Non-operative per Othro. Non-weight bearing for (at least) 2 weeks Will require acute rehab [facility] - patient lives at home with his elderly who is in a wheelchair (2) CAD (coronary artery disease) Qualifiers: Coronary Disease-Associated Artery/Lesion type: bypass graft [place] vs. transplanted heart: [place] heart Associated angina: without angina Qualified Code(s): I25.810 - Atherosclerosis of coronary artery bypass graft(s) without angina pectoris Is this a current diagnosis for this admission?: Yes Plan: Patient has a history of coronary artery disease and four-vessel CABG. Continue home dose of Plavix, statin, and antihypertensives. (3) DVT prophylaxis Is this a current diagnosis for this admission?: Yes Plan: Given the patient's immobility, SCDs and Heparin SC for DVT prophylaxis. (4) HAILY (acute kidney injury) Is this a current diagnosis for this admission?: Yes Plan: Resolved, continue half normal saline at 75 cc an hour. Hold Lasix for now. Monitor urine output closely. - Time Time Spent with patient: 15-24 minutes Medications reviewed and adjusted accordingly: Yes Anticipated discharge: Acute Rehab - Inpatient Certification Based on my medical assessment, after consideration of the patient's comorbidities, presenting symptoms, or acuity I expect that the services needed warrant INPATIENT care.: Yes I certify that my determination is in accordance with my understanding of Medicare's requirements for reasonable and necessary INPATIENT services [42 CFR 412.3e].: Yes Medical Necessity: Risk of Complication if Not Cared For in Hospital - Plan Summary Plan Summary: The plan is to discharge the patient to acute rehab
[2017-09-20] MEDS: SIMVASTATIN 10 MG TABLET PO SCH (22:09)
[2017-09-21] MEDS: HEPARIN SOD (PORCINE) 5,000 UNIT/ML 1 ML SYRINGE SUBCUT SCH ×3 (06:34→21:49)
[2017-09-21] MEDS: 1/2 NORMAL SALINE 1,000 ML IV PRN ×2 (06:34→21:49)
[2017-09-21] MEDS: TRAMADOL HCL 50 MG TABLET PO PRN (06:37)
[2017-09-21 09:40] LABS: HEMATOCRIT 34.5 % (37.9-51.0); MEAN CORPUSCULAR HEMOGLOBIN 21.4 pg (27.0-33.4); MEAN CORPUSCULAR VOLUME 67 fl (80-97); PLATELET COUNT 184 10^3/uL (150-450); RED BLOOD COUNT 5.15 10^6/uL (4.35-5.55); RED CELL DISTRIBUTION WIDTH 16.3 % (11.5-14.0); WHITE BLOOD COUNT 5.7 10^3/uL (4.0-10.5)
[2017-09-21] MEDS: ISOSORBIDE MONONITRATE 60 MG TAB.ER.24H PO SCH (11:19)
[2017-09-21] MEDS: AMLODIPINE BESYLATE 10 MG TABLET PO SCH (11:19)
[2017-09-21] MEDS: CLOPIDOGREL BISULFATE 75 MG TABLET PO SCH (11:20)
[2017-09-21] MEDS: LISINOPRIL 10 MG TABLET PO SCH (11:20)
[2017-09-21] MEDS: CARVEDILOL 12.5 MG TABLET PO SCH ×2 (11:20→21:49)
--- NOTE | 2017-09-21 15:48 | PDOC PROGRESS REPORT ---
Subjective Progress Note for:: 09/21/17 Subjective:: MARIANA MARIN is a 86 year old male admitted for right proximal femur fracture following a trip and fall at home. Evaluated by orthopedics, they have deemed his case nonoperative. Plan to manage the patient's pain and discharged to acute rehab. Patient seen this morning on rounds, he has no complaints at this time. He rarely asks for pain medication, only occasionally needing ultram. Reason For Visit: RIGHT FEMUR FRACTURE, HYPERNATREMIA Physical Exam Vital Signs: Temp Pulse Resp BP Pulse Ox 97.6 F 52 L 18 145/64 H 100 09/21/17 11:29 09/21/17 11:29 09/21/17 11:29 09/21/17 11:29 09/21/17 11:29 Intake & Output 09/20/17 09/21/17 09/22/17 06:59 06:59 06:59 Intake Total 1438 1336 425 Output Total 800 2800 Balance 638 -1464 425 Results Laboratory Results: 09/21/17 09:05 09/20/17 09:57 09/21/17 09:05 WBC 5.7 RBC 5.15 Hgb 11.0 L Hct 34.5 L MCV 67 L MCH 21.4 L MCHC 32.0 RDW 16.3 H Plt Count 184 Impressions: Hip/Pelvis X-Ray 09/17/17 00:00 IMPRESSION: Status post right total hip replacement. There is cortical interruption at the level of the proximal femoral metaphysis which I cannot exclude as an acute fracture. Clinical correlation is recommended. Other findings as noted above Knee X-Ray 09/17/17 00:00 IMPRESSION: No acute posttraumatic change. Lower Extremity CT 09/17/17 00:00 IMPRESSION: Cortical disruption in the proximal femur may suggest an acute fracture. However, there does not appear to be significant associated hematoma. However, this area is poorly seen because of the amount of artifact present. Femur X-Ray 09/17/17 12:23 IMPRESSION: No acute fracture dislocation involving the distal right femur. Other findings as noted above. Assessment & Plan - Diagnosis (1) Closed right hip fracture Qualifiers: Encounter type: initial encounter Qualified Code(s): S72.001A - Fracture of unspecified part of neck of right femur, initial encounter for closed fracture Is this a current diagnosis for this admission?: Yes Plan: Right hip fracture S/P FALL Hip X-ray shows cortical interruption at the level of the proximal femoral metaphysis. CT of RLE shows cortical disruption in the promximal femur, no evidence of surrounding hematoma Admit for pain control - initiate PRN tylenol for pain 1-2, PRN Ultram for pain 3-4, PRN Morphine IV for pain 5 Non-operative per Othro. Non-weight bearing for (at least) 2 weeks Will require acute rehab following discharge from [facility] due to social situation - patient lives at home with his elderly who is in a wheelchair (2) CAD (coronary artery disease) Qualifiers: Coronary Disease-Associated Artery/Lesion type: bypass graft [place] vs. transplanted heart: [place] heart Associated angina: without angina Qualified Code(s): I25.810 - Atherosclerosis of coronary artery bypass graft(s) without angina pectoris Is this a current diagnosis for this admission?: Yes Plan: Patient has a history of coronary artery disease and four-vessel CABG. Continue home dose of Plavix, statin, and antihypertensives. (3) DVT prophylaxis Is this a current diagnosis for this admission?: Yes Plan: Given the patient's immobility, SCDs and Heparin SC for DVT prophylaxis. (4) HAILY (acute kidney injury) Is this a current diagnosis for this admission?: Yes Plan: Resolved, continue half normal saline at 75 cc an hour. Hold Lasix for now. Monitor urine output closely. - Time Time Spent with patient: 15-24 minutes Medications reviewed and adjusted accordingly: Yes Anticipated discharge: Home - Inpatient Certification Based on my medical assessment, after consideration of the patient's comorbidities, presenting symptoms, or acuity I expect that the services needed warrant INPATIENT care.: Yes I certify that my determination is in accordance with my understanding of Medicare's requirements for reasonable and necessary INPATIENT services [42 CFR 412.3e].: Yes Medical Necessity: Risk of Complication if Not Cared For in Hospital - Plan Summary Plan Summary: Plan to discharge to acute rehab
[2017-09-21] MEDS: SIMVASTATIN 10 MG TABLET PO SCH (21:49)
[2017-09-22] MEDS: HEPARIN SOD (PORCINE) 5,000 UNIT/ML 1 ML SYRINGE SUBCUT SCH ×3 (05:33→22:27)
[2017-09-22] MEDS: LISINOPRIL 10 MG TABLET PO SCH (09:49)
[2017-09-22] MEDS: 1/2 NORMAL SALINE 1,000 ML IV PRN ×2 (09:50→22:27)
[2017-09-22] MEDS: AMLODIPINE BESYLATE 10 MG TABLET PO SCH (09:51)
[2017-09-22] MEDS: CARVEDILOL 12.5 MG TABLET PO SCH ×2 (09:51→22:27)
[2017-09-22] MEDS: CLOPIDOGREL BISULFATE 75 MG TABLET PO SCH (09:51)
[2017-09-22] MEDS: ISOSORBIDE MONONITRATE 60 MG TAB.ER.24H PO SCH (09:51)
--- NOTE | 2017-09-22 11:44 | PDOC PROGRESS REPORT ---
Subjective Progress Note for:: 09/22/17 Subjective:: MARIANA MARIN is a 86 year old male admitted for right proximal femur fracture following a trip and fall at home. Evaluated by orthopedics, they have deemed his case nonoperative. Plan to manage the patient's pain and discharged to acute rehab. Patient seen this morning on rounds, he is resting comfortably in bed. He has no complaints this morning. Reason For Visit: RIGHT FEMUR FRACTURE, HYPERNATREMIA Physical Exam Vital Signs: Temp Pulse Resp BP Pulse Ox 97.8 F 64 18 166/62 H 100 09/22/17 07:35 09/22/17 07:35 09/22/17 07:35 09/22/17 07:35 09/22/17 07:35 Intake & Output 09/21/17 09/22/17 09/23/17 06:59 06:59 06:59 Intake Total 1336 1375 Output Total 2800 800 Balance -1464 575 Weight 85.3 kg General appearance: PRESENT: no acute distress Head exam: PRESENT: atraumatic Eye exam: PRESENT: conjunctiva pink Mouth exam: PRESENT: moist Neck exam: PRESENT: full ROM Respiratory exam: PRESENT: symmetrical, unlabored Cardiovascular exam: PRESENT: +S1, +S2 Pulses: PRESENT: normal radial pulses, normal dorsalis pedis pul GI/Abdominal exam: PRESENT: soft. ABSENT: tenderness Rectal exam: PRESENT: deferred Gentrourinary exam: PRESENT: other - Limited range of motion in the right lower extremity. Full range of motion to left lower extremity Extremities exam: ABSENT: full ROM Musculoskeletal exam: PRESENT: ambulatory - With assistance Neurological exam: PRESENT: alert, awake, oriented to person, oriented to place , oriented to time, oriented to situation Psychiatric exam: PRESENT: appropriate affect Results Laboratory Results: 09/21/17 09:05 09/20/17 09:57 Impressions: Hip/Pelvis X-Ray 09/17/17 00:00 IMPRESSION: Status post right total hip replacement. There is cortical interruption at the level of the proximal femoral metaphysis which I cannot exclude as an acute fracture. Clinical correlation is recommended. Other findings as noted above Knee X-Ray 09/17/17 00:00 IMPRESSION: No acute posttraumatic change. Lower Extremity CT 09/17/17 00:00 IMPRESSION: Cortical disruption in the proximal femur may suggest an acute fracture. However, there does not appear to be significant associated hematoma. However, this area is poorly seen because of the amount of artifact present. Femur X-Ray 09/17/17 12:23 IMPRESSION: No acute fracture dislocation involving the distal right femur. Other findings as noted above. Status: Imported from PACS Assessment & Plan - Diagnosis (1) Closed right hip fracture Qualifiers: Encounter type: initial encounter Qualified Code(s): S72.001A - Fracture of unspecified part of neck of right femur, initial encounter for closed fracture Is this a current diagnosis for this admission?: Yes Plan: Right hip fracture S/P FALL Hip X-ray shows cortical interruption at the level of the proximal femoral metaphysis. CT of RLE shows cortical disruption in the promximal femur, no evidence of surrounding hematoma Admit for pain control - initiate PRN tylenol for pain 1-2, PRN Ultram for pain 3-4, PRN Morphine IV for pain 5 Non-operative per Othro. Non-weight bearing for (at least) 2 weeks Will require acute rehab following discharge from [facility] due to social situation - patient lives at home with his elderly who is in a wheelchair Appreciate discharge planning with assistance (2) CAD (coronary artery disease) Qualifiers: Coronary Disease-Associated Artery/Lesion type: bypass graft [place] vs. transplanted heart: [place] heart Associated angina: without angina Qualified Code(s): I25.810 - Atherosclerosis of coronary artery bypass graft(s) without angina pectoris Is this a current diagnosis for this admission?: Yes Plan: Patient has a history of coronary artery disease and four-vessel CABG. Continue home dose of Plavix, statin, and antihypertensives. (3) DVT prophylaxis Is this a current diagnosis for this admission?: Yes Plan: Given the patient's immobility, SCDs and Heparin SC for DVT prophylaxis. (4) HAILY (acute kidney injury) Is this a current diagnosis for this admission?: Yes Plan: Resolved, continue half normal saline at 75 cc an hour. Hold Lasix for now. Monitor urine output closely. - Time Time Spent with patient: 15-24 minutes Medications reviewed and adjusted accordingly: Yes Anticipated discharge: Acute Rehab Within: within 48 hours - Inpatient Certification Based on my medical assessment, after consideration of the patient's comorbidities, presenting symptoms, or acuity I expect that the services needed warrant INPATIENT care.: Yes I certify that my determination is in accordance with my understanding of Medicare's requirements for reasonable and necessary INPATIENT services [42 CFR 412.3e].: Yes Medical Necessity: Risk of Complication if Not Cared For in Hospital - Plan Summary Plan Summary: The plan is to discharge the patient to acute rehab
[2017-09-22] MEDS: SIMVASTATIN 10 MG TABLET PO SCH (22:27)
[2017-09-23] MEDS: TRAMADOL HCL 50 MG TABLET PO PRN (05:49)
[2017-09-23] MEDS: HEPARIN SOD (PORCINE) 5,000 UNIT/ML 1 ML SYRINGE SUBCUT SCH (05:54)
[2017-09-23 07:03] LABS: HEMATOCRIT 36.6 % (37.9-51.0); HEMOGLOBIN 11.7 g/dL (13.5-17.0); MEAN CORPUSCULAR HEMOGLOBIN 21.6 pg (27.0-33.4); MEAN CORPUSCULAR HGB CONC 32.1 g/dL (32.0-36.0); MEAN CORPUSCULAR VOLUME 67 fl (80-97); PLATELET COUNT 217 10^3/uL (150-450); RED BLOOD COUNT 5.43 10^6/uL (4.35-5.55); RED CELL DISTRIBUTION WIDTH 16.5 % (11.5-14.0); WHITE BLOOD COUNT 5.6 10^3/uL (4.0-10.5)
[2017-09-23] MEDS: MORPHINE SULFATE 10 MG/ML INJ IV PRN ×2 (09:09→16:00)
[2017-09-23] MEDS: LISINOPRIL 10 MG TABLET PO SCH (09:09)
[2017-09-23] MEDS: CARVEDILOL 12.5 MG TABLET PO SCH (09:10)
[2017-09-23] MEDS: CLOPIDOGREL BISULFATE 75 MG TABLET PO SCH (09:10)
[2017-09-23] MEDS: AMLODIPINE BESYLATE 10 MG TABLET PO SCH (09:10)
[2017-09-23] MEDS: ISOSORBIDE MONONITRATE 60 MG TAB.ER.24H PO SCH (09:10)
--- NOTE | 2017-09-23 11:58 | PDOC PROGRESS REPORT ---
Subjective Progress Note for:: 09/23/17 Subjective:: MARIANA MARIN is a 86 year old male admitted for right proximal femur fracture following a trip and fall at home. Evaluated by orthopedics, they have deemed his case nonoperative. Plan to manage the patient's pain and discharged to acute rehab. Patient seen this morning on rounds, he is resting comfortably in bed. He states he is experiencing mild R hip pain. The patient is currently awaiting placement to acute rehab. Reason For Visit: RIGHT FEMUR FRACTURE, HYPERNATREMIA Physical Exam Vital Signs: Temp Pulse Resp BP Pulse Ox 97.7 F 52 L 18 171/67 H 100 09/23/17 07:31 09/23/17 07:31 09/23/17 07:31 09/23/17 07:31 09/23/17 07:31 Intake & Output 09/22/17 09/23/17 09/24/17 06:59 06:59 06:59 Intake Total 1375 2550 237 Output Total 800 1800 400 Balance 575 750 -163 Weight 85.3 kg General appearance: PRESENT: no acute distress Head exam: PRESENT: atraumatic Eye exam: PRESENT: conjunctiva pink Mouth exam: PRESENT: moist Neck exam: PRESENT: full ROM, other - HX OF L ENDARTERECTOMY Respiratory exam: PRESENT: symmetrical, unlabored Cardiovascular exam: PRESENT: +S1, +S2 Pulses: PRESENT: normal radial pulses, normal dorsalis pedis pul Vascular exam: PRESENT: normal capillary refill GI/Abdominal exam: PRESENT: normal bowel sounds, soft Rectal exam: PRESENT: deferred Extremities exam: ABSENT: full ROM - PARTIAL ROM IN RLE, FULL ROM IN LLE Musculoskeletal exam: ABSENT: full ROM - PARTIAL ROM IN RLE, FULL ROM IN LLE Neurological exam: PRESENT: alert, awake, oriented to person, oriented to place , oriented to time, oriented to situation Skin exam: PRESENT: normal color Results Laboratory Results: 09/23/17 05:11 09/20/17 09:57 09/23/17 05:11 WBC 5.6 RBC 5.43 Hgb 11.7 L Hct 36.6 L MCV 67 L MCH 21.6 L MCHC 32.1 RDW 16.5 H Plt Count 217 Impressions: Hip/Pelvis X-Ray 09/17/17 00:00 IMPRESSION: Status post right total hip replacement. There is cortical interruption at the level of the proximal femoral metaphysis which I cannot exclude as an acute fracture. Clinical correlation is recommended. Other findings as noted above Knee X-Ray 09/17/17 00:00 IMPRESSION: No acute posttraumatic change. Lower Extremity CT 09/17/17 00:00 IMPRESSION: Cortical disruption in the proximal femur may suggest an acute fracture. However, there does not appear to be significant associated hematoma. However, this area is poorly seen because of the amount of artifact present. Femur X-Ray 09/17/17 12:23 IMPRESSION: No acute fracture dislocation involving the distal right femur. Other findings as noted above. Status: Imported from PACS Assessment & Plan - Diagnosis (1) Closed right hip fracture Qualifiers: Encounter type: initial encounter Qualified Code(s): S72.001A - Fracture of unspecified part of neck of right femur, initial encounter for closed fracture Is this a current diagnosis for this admission?: Yes Plan: Right hip fracture S/P FALL Hip X-ray shows cortical interruption at the level of the proximal femoral metaphysis. CT of RLE shows cortical disruption in the promximal femur, no evidence of surrounding hematoma Admit for pain control - initiate PRN tylenol for pain 1-2, PRN Ultram for pain 3-4, PRN Morphine IV for pain 5 Non-operative per Othro. Non-weight bearing for (at least) 2 weeks Will require acute rehab following discharge from [facility] due to social situation - patient lives at home with his elderly who is in a wheelchair Appreciate discharge planning with assistance (2) CAD (coronary artery disease) Qualifiers: Coronary Disease-Associated Artery/Lesion type: bypass graft [place] vs. transplanted heart: [place] heart Associated angina: without angina Qualified Code(s): I25.810 - Atherosclerosis of coronary artery bypass graft(s) without angina pectoris Is this a current diagnosis for this admission?: Yes Plan: Patient has a history of coronary artery disease and four-vessel CABG. Continue home dose of Plavix, statin, and antihypertensives. (3) DVT prophylaxis Is this a current diagnosis for this admission?: Yes Plan: Given the patient's immobility, SCDs and Heparin SC for DVT prophylaxis. (4) HAILY (acute kidney injury) Is this a current diagnosis for this admission?: Yes Plan: Resolved, continue half normal saline at 75 cc an hour. Hold Lasix for now. Monitor urine output closely. - Time Time Spent with patient: 15-24 minutes Medications reviewed and adjusted accordingly: Yes Anticipated discharge: Home - Inpatient Certification Based on my medical assessment, after consideration of the patient's comorbidities, presenting symptoms, or acuity I expect that the services needed warrant INPATIENT care.: Yes I certify that my determination is in accordance with my understanding of Medicare's requirements for reasonable and necessary INPATIENT services [42 CFR 412.3e].: Yes Medical Necessity: Risk of Complication if Not Cared For in Hospital - Plan Summary Plan Summary: PLAN TO DISCHARGE TO ACUTE REHAB
--- NOTE | 2017-09-23 13:31 | PDOC TRANSFER SUMMARY ---
General Admission Date/PCP: 09/19/17 16:05 Admission Date: 09/19/17 Transfer Date: 09/23/17 Resuscitation Status: Full Code - Transfer Diagnosis (1) Closed right hip fracture Is this a current diagnosis for this admission?: Yes Diagnosis Summary: Right proximal femur fracture status post fall. Hip x-ray and CT shows cortical interruption at the level of the proximal femoral metaphysis, no evidence of surrounding hematoma. Nonoperative per orthopedic. Nonweightbearing for at least 2 weeks. Pain well-controlled with Tylenol and Ultram. Patient requires acute rehab following discharge from [facility] for physical therapy and due to social situation -patient lives at home with elderly and family not available to care for him. (2) CAD (coronary artery disease) Is this a current diagnosis for this admission?: Yes Diagnosis Summary: Patient has a history of coronary artery disease and four-vessel CABG. Continue home dose Plavix, statin, and antihypertensive. (3) DVT prophylaxis Is this a current diagnosis for this admission?: Yes Diagnosis Summary: Given the patient's immobility, the patient is at high risk for DVTs. We will continue subcutaneous Lovenox post-discharge. - Transfer Medications Home Medications: Amlodipine Besylate [Norvasc 10 mg Tablet] 10 mg PO DAILY 09/17/17 Carvedilol [Coreg 25 mg Tablet] 25 mg PO Q12 09/17/17 Clopidogrel Bisulfate [Clopidogrel] 75 mg PO DAILY 09/17/17 Furosemide [Lasix 40 mg Tablet] 40 mg PO DAILY 09/17/17 Isosorbide Mononitrate [Imdur 60 mg Tablet.er] 60 mg PO DAILY 09/17/17 Lisinopril [Prinivil 40 mg Tablet] 40 mg PO DAILY 09/17/17 Simvastatin [Zocor 20 mg Tablet] 20 mg PO QHS 09/17/17 Umeclidinium Brm/Vilanterol Tr [Anoro Ellipta 62.5-25 Mcg INH] 1 puff IH DAILY 09/17/17 Transfer Medications: Current Medications Acetaminophen (Tylenol 325 Mg Tablet) 650 mg PO Q4HP PRN PRN Reason: FOR PAIN SCALE 1-2 Stop: 10/17/17 16:53 Last Admin: 09/18/17 13:55 Dose: 650 mg Amlodipine Besylate (Norvasc 10 Mg Tablet) 10 mg PO DAILY [facility] Stop: 10/18/17 09:59 Last Admin: 09/23/17 09:10 Dose: 10 mg Carvedilol (Coreg 12.5 Mg Tablet) 25 mg PO Q12 [facility] Stop: 10/17/17 21:59 Last Admin: 09/23/17 09:10 Dose: 25 mg Clopidogrel Bisulfate (Plavix 75 Mg Tablet) 75 mg PO DAILY [facility] Stop: 10/18/17 09:59 Last Admin: 09/23/17 09:10 Dose: 75 mg Heparin Sodium (Porcine) (Heparin Inj 5,000 Units/Ml 1 Ml Syringe) 5,000 unit SUBCUT Q8 [facility] Stop: 10/17/17 21:59 Last Admin: 09/23/17 05:54 Dose: 5,000 unit Sodium Chloride (Nacl 0.45% 1000 Ml Iv Soln) 1,000 mls @ 75 mls/hr IV CONTINUOUS PRN PRN Reason: THIS MED IS NOT "PRN" Stop: 10/19/17 15:53 Last Admin: 09/22/17 22:27 Dose: 1,000 ml Isosorbide Mononitrate (Imdur 60 Mg Tablet.Er) 60 mg PO DAILY [facility] Stop: 10/18/17 09:59 Last Admin: 09/23/17 09:10 Dose: 60 mg Lisinopril (Prinivil 10 Mg Tablet) 40 mg PO DAILY [facility] Stop: 10/18/17 09:59 Last Admin: 09/23/17 09:09 Dose: 40 mg Morphine Sulfate (Morphine 10 Mg/Ml Inj) 2 mg IV Q4HP PRN PRN Reason: PAIN SCALE OF 5 Stop: 09/24/17 15:34 Last Admin: 09/23/17 09:09 Dose: 2 mg Ondansetron HCl (Zofran Odt 4 Mg Tablet) 4 mg SL Q6HP PRN PRN Reason: FOR NAUSEA/VOMITING Stop: 10/17/17 18:12 Patient Own Medication (Umeclidinium Brm/Vilanterol Tr [Anoro Ellipta 62.5-25 Mcg Inh]) 1 puff IH .DAILY [facility] Stop: 10/18/17 09:59 Simvastatin (Zocor 10 Mg Tablet) 20 mg PO QHS [facility] Stop: 10/17/17 21:59 Last Admin: 09/22/17 22:27 Dose: 20 mg Tramadol HCl (Ultram 50 Mg Tablet) 50 mg PO Q6HP PRN PRN Reason: FOR PAIN SCALE 2-4 Stop: 09/24/17 20:01 Last Admin: 09/23/17 05:49 Dose: 50 mg - Allergies Allergies/Adverse Reactions: aspirin Adverse Reaction (Verified 09/17/17 12:30) Anaphylaxis - Diet/Activity Discharge Diet: Cardiac Discharge Activity: Activity As Tolerated, Other - RLE nonweightbearing for(at least) 10 days. Hospital Course Hospital Course: Wisam Horton is a 86 year old male who presented to [facility] with a right hip fracture. The patient reports he tripped and fell at home while taking out the garbage. Denies LOC or head trauma. The patient stayed home for 24 hours following his fall, however family brought him to the hospital because he was unable to ambulate due to significant right hip pain. Patient has a history of right hip arthroplasty. CT and x-ray of the RLE show cortical disruption in the proximal femur, no evidence of surrounding hematoma. The patient has been able to participate in physical therapy without difficulty. He infrequently complains of right hip pain, which has been controlled with Tylenol and Ultram. The patient is otherwise very pleasant and cooperative with staff. The patient lives at home with his elderly who is in poor health. Multiple family members have stated that they are not available to assist in the care of the patient if he were to go home. For these reasons, the decision has been made to send the patient to acute rehab. Physical Exam Vital Signs: Temp Pulse Resp BP Pulse Ox 97.7 F 52 L 18 171/67 H 100 09/23/17 07:31 09/23/17 07:31 09/23/17 07:31 09/23/17 07:31 09/23/17 07:31 Intake & Output 09/22/17 09/23/17 09/24/17 06:59 06:59 06:59 Intake Total 1375 2550 237 Output Total 800 1800 400 Balance 575 750 -163 Weight 85.3 kg Results Laboratory Results: 09/23/17 05:11 09/20/17 09:57 09/23/17 05:11 WBC 5.6 RBC 5.43 Hgb 11.7 L Hct 36.6 L MCV 67 L MCH 21.6 L MCHC 32.1 RDW 16.5 H Plt Count 217 Impressions: Hip/Pelvis X-Ray 09/17/17 00:00 IMPRESSION: Status post right total hip replacement. There is cortical interruption at the level of the proximal femoral metaphysis which I cannot exclude as an acute fracture. Clinical correlation is recommended. Other findings as noted above Knee X-Ray 09/17/17 00:00 IMPRESSION: No acute posttraumatic change. Lower Extremity CT 09/17/17 00:00 IMPRESSION: Cortical disruption in the proximal femur may suggest an acute fracture. However, there does not appear to be significant associated hematoma. However, this area is poorly seen because of the amount of artifact present. Femur X-Ray 09/17/17 12:23 IMPRESSION: No acute fracture dislocation involving the distal right femur. Other findings as noted above. Plan Discharge Plan: The plan is to discharge the patient to acute rehab, he will need to follow-up with Dr. Gaytan (orthopedics) on 08/31/2017 Time Spent: Less than 30 Minutes
[2017-09-23 16:17] VITALS: BP 130/61
[2017-09-23] MEDS ORDERED: ENOXAPARIN SODIUM INJ 30 MG/0.3 ML DISP.SYRIN SUBCUT SCH (22:00)
== END 2017-09-23 17:51 | DRG 536 ==
LOC: ER 11:59 → INTOOBSV 14:27 → EH 14:27 → 4W 19:24 → OBSVTOIN 09-19 16:05
PROVIDERS: ADMIT Emergency Medicine; ATTEND Emergency Medicine
DX: S72.091A Other fracture of head and neck of right femur, initial encounter for closed fracture (principal); M97.01XA Periprosthetic fracture around internal prosthetic right hip joint, initial encounter; E87.0 Hyperosmolality and hypernatremia; N17.9 Acute kidney failure, unspecified; W01.0XXA Fall on same level from slipping, tripping and stumbling without subsequent striking against object, initial encounter; Y92.017 Garden or yard in single-family (private) house as the place of occurrence of the external cause; Z96.641 Presence of right artificial hip joint; I10 Essential (primary) hypertension; I25.10 Atherosclerotic heart disease of native coronary artery without angina pectoris; H40.9 Unspecified glaucoma; Z95.1 Presence of aortocoronary bypass graft; Z79.899 Other long term (current) drug therapy; Z88.6 Allergy status to analgesic agent; Z87.891 Personal history of nicotine dependence; Z86.73 Personal history of transient ischemic attack (TIA), and cerebral infarction without residual deficits
CPT/HCPCS: 36415; 80048; 83735; 83880; 84100; 85025; 85027; 85610; 93005; 93010; 99285; G0378; G8978-GP; G8979-GP; G8987-GO; G8988-GO; J1644; J2270

== ENCOUNTER 2017-11-11 07:02 | Inpatient (IN) | payer MEDICARE, OTHER ==
[2017-11-11] MEDS ORDERED: MAGNESIUM SULFATE/D5W 1 GM/100 ML RTUPB IV ONE (07:19)
[2017-11-11 07:42] LABS: ABSOLUTE BASOPHILS # (AUTO) 0.1 10^3/uL (0.0-0.2); ABSOLUTE EOSINOPHILS # (AUTO) 0.2 10^3/uL (0.0-0.6); ABSOLUTE LYMPHOCYTES (AUTO) 0.9 10^3/uL (0.5-4.7); ABSOLUTE MONOCYTES (AUTO) 1.2 10^3/uL (0.1-1.4); ABSOLUTE NEUT (AUTO) 8.3 10^3/uL (1.7-8.2); BASOPHILS % (AUTO) 0.6 % (0-2); EOSINOPHILS % (AUTO) 2.2 % (0-6); HEMATOCRIT 37.5 % (37.9-51.0); MEAN CORPUSCULAR HEMOGLOBIN 21.4 pg (27.0-33.4); MEAN CORPUSCULAR VOLUME 67 fl (80-97); MONOCYTES % (AUTO) 11.6 % (3-13); PLATELET COUNT 261 10^3/uL (150-450); RED BLOOD COUNT 5.61 10^6/uL (4.35-5.55); RED CELL DISTRIBUTION WIDTH 15.9 % (11.5-14.0); SEGMENTED NEUTROPHILS % (AUTO) 77.6 % (42-78); TOTAL CELLS COUNTED % (AUTO) 100 %; WHITE BLOOD COUNT 10.6 10^3/uL (4.0-10.5)
[2017-11-11 07:48] LABS: INTERNATIONAL RATION (INR) 1.06; PROTHROMBIN TIME 14.3 SEC (11.4-15.4)
[2017-11-11 08:01] LABS: ALANINE AMINOTRANSFERASE 22 U/L (21-72); ALBUMIN 3.8 g/dL (3.5-5.0); ALKALINE PHOSPHATASE 94 U/L (38-126); ANION GAP 11 (5-19); ASPARTATE AMINO TRANSFERASE 16 U/L (17-59); BILIRUBIN,DIRECT 0.3 mg/dL (0.0-0.4); BILIRUBIN,TOTAL 0.7 mg/dL (0.2-1.3); BLOOD UREA NITROGEN 27 mg/dL (7-20); CALCIUM 9.5 mg/dL (8.4-10.2); CARBON DIOXIDE 27 mmol/L (22-30); CHLORIDE 109 mmol/L (98-107); CREATINE KINASE 28 U/L (55-170); GLUCOSE 122 mg/dL (75-110); LIPASE 99.1 U/L (23-300); POTASSIUM 3.8 mmol/L (3.6-5.0); SODIUM 146.7 mmol/L (137-145); TOTAL PROTEIN 6.8 g/dL (6.3-8.2)
[2017-11-11 08:12] LABS: CREATINE KINASE MB 0.52 ng/mL (<4.55)
[2017-11-11 08:14] LABS: TROPONIN I 0.052 ng/mL
--- NOTE | 2017-11-11 08:38 | RADIOLOGY REPORT (SQ) ---
EXAM DESCRIPTION: CHEST SINGLE VIEW COMPLETED DATE/TIME: 11/11/2017 7:33 am REASON FOR STUDY: sob COMPARISON: None. EXAM PARAMETERS: NUMBER OF VIEWS: One view. TECHNIQUE: Single frontal radiographic view of the chest acquired. RADIATION DOSE: NA LIMITATIONS: None. FINDINGS: LUNGS AND PLEURA: Increased interstitial markings at both lung bases from mild interstitia l edema. Trace bilateral pleural effusions. No dense consolidation worrisome for pneumonia. No pneumothorax. MEDIASTINUM AND HILAR STRUCTURES: No masses. Contour normal. HEART AND VASCULAR STRUCTURES: No cardiomegaly. Old sternotomy for CABG BONES: Osteopenic. No acute findings HARDWARE: None in the chest. OTHER: No other significant finding. IMPRESSION: Mild interstitial edema at the lung bases with trace pleural effusions. TECHNICAL DOCUMENTATION: JOB ID: [id number] [employer]- All Rights Reserved Reading location - IP/workstation name: [email or web address]
--- NOTE | 2017-11-11 08:39 | EKG REPORT ---
SEVERITY:- ABNORMAL ECG - SINUS RHYTHM [Now Present] FIRST DEGREE AV BLOCK [Now Present] PROBABLE LEFT ATRIAL ABNORMALITY [Insig. Chg.] LOW VOLTAGE IN FRONTAL LEADS [Insig. Chg.] BORDERLINE PROLONGED QT INTERVAL [Insig. Chg.] SIGNIFICANT RHYTHM AND ECG CONTOUR CHANGES [Now Absent] ANTERIOR INFEROLATERAL INFERIOR EVOLUTION OF ANT-LAT CO CONTINUES [id number] : Confirmed by: Gustabo Hinojosa 11-Nov-2017 08:37:59
[2017-11-11] MEDS ORDERED: FUROSEMIDE INJ/PF 40 MG/4 ML SDV IV ONE (08:50)
--- NOTE | 2017-11-11 11:09 | ER Document Report ---
ED General - General Chief Complaint: Breathing Difficulty Stated Complaint: DIFFICULTY BREATHING Time Seen by Provider: 11/11/17 07:11 TRAVEL OUTSIDE OF THE [place] IN LAST 30 DAYS: No - HPI Patient complains to provider of: Difficulty breathing Notes: Patient coming in by EMS for a short distress. EMS states upon their arrival found the patient to give neck with SPO2 in the 90s patient had coarse wheezing therefore was given multiple breathing treatments and Solu-Medrol transported here for further evaluation. Patient has a history of COPD but also CHF also has a coronary artery history. Patient upon my evaluation sitting up resting comfortably denies any fevers chills nausea vomiting. Patient states no chest pain no abdominal pain. Patient states that his shortness of breath has improved states slight production of the last few days worsening shortness of breath over the last few days as well. No signs of distress upon my evaluation. - Related Data Allergies/Adverse Reactions: aspirin Adverse Reaction (Verified 11/11/17 07:30) Anaphylaxis Past Medical History - Social History Smoking Status: Former Smoker Chew tobacco use (# tins/day): No Frequency of alcohol use: None Drug Abuse: None Family History: Reviewed & Not Pertinent, Other - glaucoma Patient has suicidal ideation: No Patient has homicidal ideation: No - Past Medical History Cardiac Medical History: Reports: Hx Hypercholesterolemia, Hx Hypertension Renal/ Medical History: Denies: Hx Peritoneal Dialysis Psychiatric Medical History: Reports: Hx Depression Past Surgical History: Reports: Hx Cardiac Catheterization, Hx Cardiac Surgery, Hx Coronary Artery Bypass Graft - 4 vessel, Hx Orthopedic Surgery - History of right hip replacement Review of Systems - Review of Systems Constitutional: No symptoms reported EENT: No symptoms reported Cardiovascular: No symptoms reported Respiratory: Short of breath Gastrointestinal: No symptoms reported Genitourinary: No symptoms reported Male Genitourinary: No symptoms reported Musculoskeletal: No symptoms reported Skin: No symptoms reported Hematologic/Lymphatic: No symptoms reported Neurological/Psychological: No symptoms reported -: Yes All other systems reviewed and negative Physical Exam - Vital signs Vitals: Pulse Ox 100 11/11/17 07:09 Interpretation: Normal - General General appearance: Appears well, Alert - HEENT Head: Normocephalic, Atraumatic Eyes: Normal Pupils: PERRL - Respiratory Respiratory status: No respiratory distress Chest status: Nontender Breath sounds: Wheezing Chest palpation: Normal - Cardiovascular Rhythm: Regular Heart sounds: Normal auscultation Murmur: No - Abdominal Inspection: Normal Distension: No distension Bowel sounds: Normal Tenderness: Nontender Organomegaly: No organomegaly - Back Back: Normal, Nontender - Extremities General upper extremity: Normal inspection, Nontender, Normal color, Normal ROM , Normal temperature General lower extremity: Normal inspection, Nontender, Normal color, Normal ROM , Normal temperature, Normal weight bearing. No: Rola's sign - Neurological Neuro grossly intact: Yes Cognition: Normal Orientation: AAOx4 Tim Coma Scale Eye Opening: Spontaneous Tim Coma Scale Verbal: Oriented Tim Coma Scale Motor: Obeys Commands [place] Coma Scale Total: 15 Speech: Normal Motor strength normal: LUE, RUE, LLE, RLE Sensory: Normal - Psychological Associated symptoms: Normal affect, Normal mood - Skin Skin Temperature: Warm Skin Moisture: Dry Skin Color: Normal Course - Re-evaluation Re-evalutation: 11/11/17 15:02 Patient's evaluation is consistent with more likely COPD exacerbation. While monitoring here in ER patient was taken off oxygen however did become hypoxic with minimal movement with SPO2 [id number]. No signs of any infection. Patient does have a little bit of fluid more likely from lack of Lasix this morning. Patient was given a dose of Lasix. Patient otherwise was admitted to the hospital service for further evaluation of a COPD exacerbation - Vital Signs Vital signs: Temp Pulse Resp BP Pulse Ox 24 H 157/73 H 93 11/11/17 13:00 11/11/17 10:02 11/11/17 13:00 - Laboratory Result Diagrams: 11/11/17 07:21 11/11/17 07:21 Laboratory results interpreted by me: 11/11/17 11/11/17 11/11/17 07:21 07:21 07:21 WBC 10.6 H RBC 5.61 H Hgb 12.0 L Hct 37.5 L MCV 67 L MCH 21.4 L RDW 15.9 H Lymphocytes % 8.0 L Absolute Neutrophils 8.3 H Sodium 146.7 H Chloride 109 H BUN 27 H Est GFR (Non-Af Amer) 57 L Glucose 122 H AST 16 L Creatine Kinase 28 L NT-Pro-B Natriuret Pep 869 H Discharge - Discharge Clinical Impression: COPD exacerbation, History of CHF (congestive heart failure) Condition: Good Disposition: ADMITTED INPATIENT Admitting Provider: Hospitalist - May Unit Admitted: Telemetry
[2017-11-11] MEDS ORDERED: ONDANSETRON 4 MG TAB.RAPDIS PO PRN (12:10)
[2017-11-11] MEDS ORDERED: ONDANSETRON HCL INJ/PF 4 MG/2 ML SDV IV PRN (12:10)
[2017-11-11] MEDS ORDERED: LEVALBUTEROL HCL NEB 0.63 MG/3 ML AMPUL NEB PRN (12:10)
[2017-11-11] MEDS ORDERED: ACETAMINOPHEN 325 MG TABLET PO PRN (12:10)
--- NOTE | 2017-11-11 12:40 | PDOC H&P ---
History of Present Illness Admission Date/PCP: 11/11/17 11:22 Patient complains of: Shortness of breath History of Present Illness: The patient is a very pleasant 86 yr old male with a history of Diastolic CHF CAD s/p CABG x4 Hypertension Hyperlipidemia COPD not on home oxygen prior CVA L carotid endarterectomy He presented to the hospital with dyspnea, cough and rhinorrhea. Chest xray showed increased pulm vascular congestion and he was hypoxic on RA. He was treated with nebs and IV Lasix and referred for admission. He reports compliance with his home meds with no recent changes. 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 He requests to be a DO NOT RESUSCITATE DO NOT INTUBATE. Past Medical History Cardiac Medical History: Reports: Congestive Heart Failure, Coronary Artery Disease, Hyperlipidema, Hypertension Pulmonary Medical History: Reports: Chronic Obstructive Pulmonary Disease (COPD) Neurological Medical History: Reports: Ischemic CVA Past Surgical History Past Surgical History: Reports: Cardiac Catheterization, Coronary Artery Bypass Graft - 4 vessel, Orthopedic Surgery - History of right hip replacement Social History Information Source: Patient Smoking Status: Former Smoker Frequency of Alcohol Use: None Hx Recreational Drug Use: No Drugs: None Hx Prescription Drug Abuse: No Family History Family History: Hypertension Parental Family History Reviewed: Yes Children Family History Reviewed: Yes Sibling(s) Family History Reviewed.: Yes Medication/Allergy Allergies/Adverse Reactions: aspirin Adverse Reaction (Verified 11/11/17 07:30) Anaphylaxis Review of Systems Constitutional: ABSENT: fever(s), headache(s) Nose, Mouth, and Throat: PRESENT: sore throat Cardiovascular: PRESENT: edema. ABSENT: chest pain Respiratory: PRESENT: dyspnea Gastrointestinal: ABSENT: abdominal pain, vomiting Integumentary: ABSENT: pruritus Neurological: ABSENT: focal weakness Endocrine: ABSENT: heat intolerance Hematologic/Lymphatic: ABSENT: easy bleeding Allergic/Immunologic: ABSENT: seasonal rhinorrhea Physical Exam Vital Signs: Temp Pulse Resp BP Pulse Ox 18 134/71 H 97 11/11/17 09:01 11/11/17 09:01 11/11/17 09:01 General appearance: PRESENT: no acute distress Head exam: PRESENT: normocephalic Eye exam: PRESENT: PERRLA. ABSENT: scleral icterus Ear exam: PRESENT: normal external ear exam Mouth exam: PRESENT: moist Teeth exam: PRESENT: edentulous Neck exam: PRESENT: JVD. ABSENT: carotid bruit, tracheal deviation Respiratory exam: PRESENT: crackles, symmetrical, unlabored. ABSENT: wheezes Cardiovascular exam: PRESENT: RRR GI/Abdominal exam: PRESENT: normal bowel sounds, soft. ABSENT: tenderness Rectal exam: PRESENT: deferred Gentrourinary exam: ABSENT: indwelling catheter Extremities exam: PRESENT: pedal edema Neurological exam: PRESENT: alert, awake, oriented to person, oriented to place , oriented to time, oriented to situation Psychiatric exam: PRESENT: appropriate affect Skin exam: ABSENT: petechiae Results Laboratory Results: 11/11/17 11:27 Troponin I 0.133 Impressions: Chest X-Ray 11/11/17 07:19 IMPRESSION: Mild interstitial edema at the lung bases with trace pleural effusions. Assessment & Plan - Diagnosis (1) Acute diastolic CHF (congestive heart failure), NYHA class 3 Is this a current diagnosis for this admission?: Yes Plan: Lasix IV, monitor Intake and output. supplemental oxygen (2) Hypertension Is this a current diagnosis for this admission?: Yes Plan: Monitor, continue outpatient meds- adjust dosage as BP allows. (3) Hyperlipidemia Is this a current diagnosis for this admission?: Yes (4) COPD exacerbation Is this a current diagnosis for this admission?: Yes Plan: Nebs, oxygen, inhalers, prednisone. (5) CAD (coronary artery disease) Qualifiers: Is this a current diagnosis for this admission?: Yes Plan: Continue outpatient meds including Plavix, Coreg, Norvasc, Imdur, Lisinopril, Amlodipine. (6) DVT prophylaxis Is this a current diagnosis for this admission?: Yes - Time Time Spent: 50 to 70 Minutes - Inpatient Certification Medical Necessity: Need For Continuous Telemetry Monitoring, Need for Nebulizer Therapy and Monitoring of Response, Risk of Complication if Not Cared For in Hospital
[2017-11-11] MEDS ORDERED: CARVEDILOL 12.5 MG TABLET PO ONE (14:00)
[2017-11-11] MEDS ORDERED: LISINOPRIL 10 MG TABLET PO ONE (14:00)
[2017-11-11] MEDS ORDERED: CLOPIDOGREL BISULFATE 75 MG TABLET PO ONE (14:00)
[2017-11-11] MEDS ORDERED: AMLODIPINE BESYLATE 5 MG TABLET PO ONE (14:00)
[2017-11-11] MEDS: IPRATROPIUM/ALBUTEROL 0.5-2.5 MG/3 ML AMPUL NEB SCH ×2 (16:17→19:54)
[2017-11-11] MEDS ORDERED: (PENDING PHARMACY ID) (Umeclidinium Brm/Vilanterol Tr [Anoro Ellipta 62.5-25 Mcg Inh] 1 PU IH SCH (16:30)
[2017-11-11] MEDS ORDERED: PREDNISONE 20 MG TABLET PO ONE (16:30)
[2017-11-11] MEDS: FUROSEMIDE INJ/PF 40 MG/4 ML SDV IV SCH (17:47)
--- NOTE | 2017-11-11 20:11 | EKG REPORT ---
SEVERITY:- ABNORMAL ECG - SINUS RHYTHM FIRST DEGREE AV BLOCK LOW VOLTAGE IN FRONTAL LEADS BORDERLINE PROLONGED QT INTERVAL : Confirmed by: Gustabo Hinojosa 11-Nov-2017 20:10:29
[2017-11-11] MEDS: CARVEDILOL 12.5 MG TABLET PO SCH (21:47)
[2017-11-11] MEDS: ISOSORBIDE MONONITRATE 60 MG TAB.ER.24H PO SCH (21:47)
[2017-11-11] MEDS: TEMAZEPAM 7.5 MG CAPSULE PO SCH (21:47)
[2017-11-11] MEDS: SIMVASTATIN 10 MG TABLET PO SCH (21:47)
[2017-11-12] MEDS: LANSOPRAZOLE 15 MG TAB.RAP.DR PO SCH (05:13)
[2017-11-12 05:34] LABS: ANION GAP 15 (5-19); BLOOD UREA NITROGEN 36 mg/dL (7-20); CALCIUM 9.3 mg/dL (8.4-10.2); CARBON DIOXIDE 25 mmol/L (22-30); CHLORIDE 107 mmol/L (98-107); GLUCOSE 175 mg/dL (75-110); PHOSPHORUS 4.1 mg/dL (2.5-4.5); POTASSIUM 3.9 mmol/L (3.6-5.0); SODIUM 147.1 mmol/L (137-145)
--- NOTE | 2017-11-12 07:26 | PDOC CONSULTATION ---
Consultation Consult Date: 11/12/17 Consult reason:: Right periprosthetic hip fracture History of Present Illness Admission Date/PCP: 11/11/17 11:22 ANETA KAUFMAN MD History of Present Illness: MARIANA MARIN is a 86 year old male status post right hip arthroplasty in now with a loose prosthetic implant and a periprosthetic fracture. The patient has been seen on an outpatient basis and surgery has been discussed with the family. At this point the family felt the patient would be better without surgery and without the associated risks of surgery. Past Medical History Cardiac Medical History: Reports: Congestive Heart Failure, Coronary Artery Disease, Hyperlipidema, Hypertension Pulmonary Medical History: Reports: Chronic Obstructive Pulmonary Disease (COPD) Neurological Medical History: Reports: Ischemic CVA Psychiatric Medical History: Reports: Depression Past Surgical History Past Surgical History: Reports: Cardiac Catheterization, Coronary Artery Bypass Graft - 4 vessel, Orthopedic Surgery - History of right hip replacement Social History Information Source: Patient, Relative, [facility] [place] Records Smoking Status: Former Smoker Frequency of Alcohol Use: None Hx Recreational Drug Use: No Drugs: None Hx Prescription Drug Abuse: No - Advance Directive Resuscitation Status: Do Not Resuscitate Family History Family History: Reviewed & Not Pertinent, Other - glaucoma Parental Family History Reviewed: No Children Family History Reviewed: No Sibling(s) Family History Reviewed.: No Medication/Allergy Home Medications: Amlodipine Besylate [Norvasc 10 mg Tablet] 10 mg PO DAILY 11/11/17 Carvedilol [Coreg 25 mg Tablet] 25 mg PO Q12 11/11/17 Clopidogrel Bisulfate [Plavix 75 mg Tablet] 75 mg PO DAILY 11/11/17 Furosemide [Lasix 40 mg Tablet] 40 mg PO DAILY 11/11/17 Isosorbide Mononitrate [Imdur 60 mg Tablet.er] 60 mg PO DAILY 11/11/17 Lisinopril [Zestril] 40 mg PO DAILY 11/11/17 Simvastatin [Zocor 20 mg Tablet] 20 mg PO QHS 11/11/17 Umeclidinium Brm/Vilanterol Tr [Anoro Ellipta 62.5-25 Mcg INH] 1 puff IH DAILY 11/11/17 Allergies/Adverse Reactions: aspirin Adverse Reaction (Verified 11/11/17 07:30) Anaphylaxis Review of Systems ROS unobtainable: Due to mental status All systems: as per PMH Physical Exam Vital Signs: Temp Pulse Resp BP Pulse Ox 36.6 C 70 14 133/66 H 94 11/12/17 03:42 11/12/17 03:42 11/12/17 03:42 11/12/17 03:42 11/12/17 03:42 Intake & Output 11/11/17 11/12/17 11/13/17 06:59 06:59 06:59 Intake Total 200 Output Total 700 Balance -500 Weight 79.1 kg Physical Exam: Patient is an elderly black male lying in hospital bed in no acute distress. General appearance: PRESENT: no acute distress Head exam: PRESENT: normocephalic Respiratory exam: PRESENT: unlabored Cardiovascular exam: PRESENT: RRR Pulses: PRESENT: +1 pedal pulses bilateral Vascular exam: PRESENT: normal capillary refill GI/Abdominal exam: PRESENT: soft Rectal exam: PRESENT: deferred Extremities exam: PRESENT: other - Passive range of motion of the right lower extremity without significant discomfort Neurological exam: PRESENT: alert Skin exam: PRESENT: dry, intact, warm. ABSENT: cyanosis, rash Results Laboratory Results: 11/12/17 04:27 11/12/17 11/12/17 04:27 04:27 Sodium 147.1 H Potassium 3.9 Chloride 107 Carbon Dioxide 25 Anion Gap 15 BUN 36 H Creatinine 1.25 Est GFR ( Amer) > 60 Est GFR (Non-Af Amer) 55 L Glucose 175 H Calcium 9.3 Phosphorus 4.1 Magnesium 2.1 TSH 0.47 11/11/17 11/12/17 11:27 04:27 Troponin I 0.133 NT-Pro-B Natriuret Pep 3580 H Impressions: Chest X-Ray 11/11/17 07:19 IMPRESSION: Mild interstitial edema at the lung bases with trace pleural effusions. Status: Imported from PACS Assessment & Plan - Diagnosis (1) Periprosthetic fracture around internal prosthetic right hip joint Qualifiers: Encounter type: initial encounter Qualified Code(s): M97.01XA - Periprosthetic fracture around internal prosthetic right hip joint, initial encounter; T84.040A - Periprosthetic fracture around internal prosthetic right hip joint, initial encounter Is this a current diagnosis for this admission?: Yes Plan: Patient can be mobilized with physical therapy with weightbearing to comfort - Time Time Spent: 50 to 70 Minutes Anticipated discharge: Other Within: Other
[2017-11-12] MEDS: IPRATROPIUM/ALBUTEROL 0.5-2.5 MG/3 ML AMPUL NEB SCH ×4 (08:58→20:24)
[2017-11-12] MEDS: AMLODIPINE BESYLATE 5 MG TABLET PO SCH (10:06)
[2017-11-12] MEDS: LISINOPRIL 10 MG TABLET PO SCH (10:06)
[2017-11-12] MEDS: DOCUSATE SODIUM 100 MG CAPSULE PO SCH (10:06)
[2017-11-12] MEDS: CLOPIDOGREL BISULFATE 75 MG TABLET PO SCH (10:07)
[2017-11-12] MEDS: PREDNISONE 20 MG TABLET PO SCH (10:07)
[2017-11-12] MEDS: ENOXAPARIN SODIUM INJ 40 MG/0.4 ML DISP.SYRIN SUBCUT SCH (10:08)
[2017-11-12] MEDS: FUROSEMIDE INJ/PF 40 MG/4 ML SDV IV SCH ×2 (10:09→17:17)
[2017-11-12] MEDS: CARVEDILOL 12.5 MG TABLET PO SCH ×2 (10:11→22:30)
--- NOTE | 2017-11-12 16:55 | PDOC PROGRESS REPORT ---
Subjective Progress Note for:: 11/12/17 Subjective:: Patient has no shortness of breath today no chest pain he appears quite comfortable is Doing physical therapy; Patient is planning to go home with home PT and home health when clinically stable Reason For Visit: CHF AND COPD EXACERBATION Physical Exam Vital Signs: Temp Pulse Resp BP Pulse Ox 97.5 F 67 16 134/70 H 97 11/12/17 15:46 11/12/17 15:59 11/12/17 15:59 11/12/17 15:46 11/12/17 15:59 Intake & Output 11/11/17 11/12/17 11/13/17 00:59 00:59 00:59 Intake Total 200 Output Total 700 Balance -500 Weight 79.379 kg 79.1 kg General appearance: PRESENT: no acute distress, cooperative, well-developed, well-nourished Head exam: PRESENT: atraumatic, normocephalic Eye exam: PRESENT: conjunctiva pink, EOMI, PERRLA. ABSENT: scleral icterus Respiratory exam: PRESENT: clear to auscultation trinity. ABSENT: rales, rhonchi, wheezes Cardiovascular exam: PRESENT: irregular rhythm. ABSENT: diastolic murmur, rubs , systolic murmur Pulses: PRESENT: normal dorsalis pedis pul GI/Abdominal exam: PRESENT: normal bowel sounds, soft. ABSENT: distended, guarding, mass, organolmegaly, rebound, tenderness Extremities exam: PRESENT: +1 edema - Right lower extremity Neurological exam: PRESENT: awake, CN II-XII grossly intact Psychiatric exam: PRESENT: appropriate affect, normal mood Results Laboratory Results: 11/12/17 04:27 11/12/17 11/12/17 04:27 04:27 Sodium 147.1 H Potassium 3.9 Chloride 107 Carbon Dioxide 25 Anion Gap 15 BUN 36 H Creatinine 1.25 Est GFR ( Amer) > 60 Est GFR (Non-Af Amer) 55 L Glucose 175 H Calcium 9.3 Phosphorus 4.1 Magnesium 2.1 TSH 0.47 11/11/17 11/12/17 11:27 04:27 Troponin I 0.133 NT-Pro-B Natriuret Pep 3580 H Impressions: Chest X-Ray 11/11/17 07:19 IMPRESSION: Mild interstitial edema at the lung bases with trace pleural effusions. Assessment & Plan - Diagnosis (1) COPD (chronic obstructive pulmonary disease) Is this a current diagnosis for this admission?: Yes (2) Hypertension Is this a current diagnosis for this admission?: Yes (3) CAD (coronary artery disease) Qualifiers: Is this a current diagnosis for this admission?: Yes (4) Periprosthetic fracture around internal prosthetic right hip joint Qualifiers: Encounter type: initial encounter Qualified Code(s): M97.01XA - Periprosthetic fracture around internal prosthetic right hip joint, initial encounter; T84.040A - Periprosthetic fracture around internal prosthetic right hip joint, initial encounter Is this a current diagnosis for this admission?: Yes - Time Time Spent with patient: We will continue present management Follow-up follow labs in the morning Evaluate for discharge in 24-48 hrs. Patient was found not to be a candidate for surgery at this time Time Spent with patient: 25-34 minutes
[2017-11-12] MEDS: ISOSORBIDE MONONITRATE 60 MG TAB.ER.24H PO SCH (22:30)
[2017-11-12] MEDS: SIMVASTATIN 10 MG TABLET PO SCH (22:30)
[2017-11-12] MEDS: TEMAZEPAM 7.5 MG CAPSULE PO SCH (22:30)
[2017-11-13] MEDS: LANSOPRAZOLE 15 MG TAB.RAP.DR PO SCH (06:10)
[2017-11-13 06:40] LABS: ANION GAP 12 (5-19); BLOOD UREA NITROGEN 45 mg/dL (7-20); CALCIUM 9.2 mg/dL (8.4-10.2); CARBON DIOXIDE 28 mmol/L (22-30); CHLORIDE 108 mmol/L (98-107); GLUCOSE 128 mg/dL (75-110); POTASSIUM 3.8 mmol/L (3.6-5.0); SODIUM 148.2 mmol/L (137-145)
[2017-11-13] MEDS: IPRATROPIUM/ALBUTEROL 0.5-2.5 MG/3 ML AMPUL NEB SCH ×4 (07:39→20:00)
[2017-11-13] MEDS: FUROSEMIDE INJ/PF 40 MG/4 ML SDV IV SCH (09:44)
[2017-11-13] MEDS: LISINOPRIL 10 MG TABLET PO SCH (09:45)
[2017-11-13] MEDS: PREDNISONE 20 MG TABLET PO SCH (09:45)
[2017-11-13] MEDS: CARVEDILOL 12.5 MG TABLET PO SCH ×2 (09:45→21:26)
[2017-11-13] MEDS: AMLODIPINE BESYLATE 5 MG TABLET PO SCH (09:45)
[2017-11-13] MEDS: CLOPIDOGREL BISULFATE 75 MG TABLET PO SCH (09:45)
[2017-11-13] MEDS: DOCUSATE SODIUM 100 MG CAPSULE PO SCH (09:45)
[2017-11-13] MEDS: ENOXAPARIN SODIUM INJ 40 MG/0.4 ML DISP.SYRIN SUBCUT SCH (09:46)
--- NOTE | 2017-11-13 11:59 | PDOC PROGRESS REPORT ---
Subjective Progress Note for:: 11/13/17 Subjective:: Patient has no shortness of breath today no chest pain he appears quite comfortable is Doing physical therapy; Patient is planning to go home with home PT and home health when clinically stable 11/13 improved no resp distress alert and awake Reason For Visit: CHF AND COPD EXACERBATION Physical Exam Vital Signs: Temp Pulse Resp BP Pulse Ox 97.4 F 61 18 159/75 H 97 11/13/17 07:33 11/13/17 11:20 11/13/17 11:20 11/13/17 07:33 11/13/17 11:20 Intake & Output 11/12/17 11/13/17 11/14/17 00:59 00:59 00:59 Intake Total 1790 180 Output Total 2350 300 Balance -560 -120 Weight 79.379 kg 79.1 kg 75.7 kg General appearance: PRESENT: no acute distress, cooperative, well-developed, well-nourished Head exam: PRESENT: atraumatic, normocephalic Eye exam: PRESENT: conjunctiva pink, EOMI, PERRLA. ABSENT: scleral icterus Respiratory exam: PRESENT: clear to auscultation trinity. ABSENT: rales, rhonchi, wheezes Cardiovascular exam: PRESENT: irregular rhythm. ABSENT: diastolic murmur, rubs , systolic murmur Pulses: PRESENT: normal dorsalis pedis pul GI/Abdominal exam: PRESENT: normal bowel sounds, soft. ABSENT: distended, guarding, mass, organolmegaly, rebound, tenderness Extremities exam: PRESENT: +1 edema - Right lower extremity Neurological exam: PRESENT: awake, CN II-XII grossly intact Psychiatric exam: PRESENT: appropriate affect, normal mood Results Laboratory Results: 11/13/17 05:08 11/13/17 05:08 Sodium 148.2 H Potassium 3.8 Chloride 108 H Carbon Dioxide 28 Anion Gap 12 BUN 45 H Creatinine 1.22 Est GFR ( Amer) > 60 Est GFR (Non-Af Amer) 56 L Glucose 128 H Calcium 9.2 11/11/17 18:50 Sputum Gram Stain - Final 11/11/17 11/12/17 11:27 04:27 Troponin I 0.133 NT-Pro-B Natriuret Pep 3580 H Impressions: Chest X-Ray 11/11/17 07:19 IMPRESSION: Mild interstitial edema at the lung bases with trace pleural effusions. Assessment & Plan - Diagnosis (1) COPD (chronic obstructive pulmonary disease) Is this a current diagnosis for this admission?: Yes (2) Hypertension Qualifiers: Hypertension type: essential hypertension Qualified Code(s): I10 - Essential (primary) hypertension Is this a current diagnosis for this admission?: Yes Plan: controlled (3) CAD (coronary artery disease) Qualifiers: Is this a current diagnosis for this admission?: Yes (4) Periprosthetic fracture around internal prosthetic right hip joint Qualifiers: Encounter type: initial encounter Qualified Code(s): M97.01XA - Periprosthetic fracture around internal prosthetic right hip joint, initial encounter; T84.040A - Periprosthetic fracture around internal prosthetic right hip joint, initial encounter Is this a current diagnosis for this admission?: Yes (5) Acute diastolic CHF (congestive heart failure), NYHA class 3 Is this a current diagnosis for this admission?: Yes Plan: improved will change lasix to po - Time Time Spent with patient: patient's condition greatly improved will discharge in am with Home Health and Home PT Time Spent with patient: 25-34 minutes
[2017-11-13] MEDS ORDERED: PREDNISONE 20 MG TABLET PO SCH (12:00)
[2017-11-13] MEDS: TEMAZEPAM 7.5 MG CAPSULE PO SCH (21:26)
[2017-11-13] MEDS: SIMVASTATIN 10 MG TABLET PO SCH (21:26)
[2017-11-13] MEDS: ISOSORBIDE MONONITRATE 60 MG TAB.ER.24H PO SCH (21:26)
[2017-11-14] MEDS: LANSOPRAZOLE 15 MG TAB.RAP.DR PO SCH (05:44)
[2017-11-14] MEDS ORDERED: ONDANSETRON HCL INJ/PF 4 MG/2 ML SDV IV PRN (07:30)
[2017-11-14] MEDS ORDERED: ONDANSETRON 4 MG TAB.RAPDIS PO PRN (07:30)
[2017-11-14] MEDS: IPRATROPIUM/ALBUTEROL 0.5-2.5 MG/3 ML AMPUL NEB SCH ×4 (08:14→19:51)
[2017-11-14] MEDS: LISINOPRIL 10 MG TABLET PO SCH (09:53)
[2017-11-14] MEDS: CLOPIDOGREL BISULFATE 75 MG TABLET PO SCH (09:53)
[2017-11-14] MEDS: PREDNISONE 20 MG TABLET PO SCH (09:53)
[2017-11-14] MEDS: CARVEDILOL 12.5 MG TABLET PO SCH ×2 (09:53→21:37)
[2017-11-14] MEDS: AMLODIPINE BESYLATE 5 MG TABLET PO SCH (09:53)
[2017-11-14] MEDS: FUROSEMIDE 40 MG TABLET PO SCH (09:54)
[2017-11-14] MEDS: DOCUSATE SODIUM 100 MG CAPSULE PO SCH (09:54)
[2017-11-14] MEDS: ENOXAPARIN SODIUM INJ 40 MG/0.4 ML DISP.SYRIN SUBCUT SCH (09:57)
[2017-11-14] MEDS ORDERED: AMLODIPINE BESYLATE 5 MG TABLET PO SCH (18:00)
[2017-11-14] MEDS ORDERED: AMLODIPINE BESYLATE 10 MG TABLET PO SCH (18:00)
--- NOTE | 2017-11-14 19:03 | PDOC PROGRESS REPORT ---
Subjective Progress Note for:: 11/14/17 Subjective:: Patient has no shortness of breath today no chest pain he appears quite comfortable is Doing physical therapy; Patient is planning to go home with home PT and home health when clinically stable 11/13 improved no resp distress alert and awake 11/14 Patient was noted to have bradycardia with a heart rate of less than 40 Patient is asymptomatic during these episodes Is alert awake appears extremely comfortable Review of the lab shows that he is hypernatremic with a sodium of 148 Reason For Visit: CHF AND COPD EXACERBATION Physical Exam Vital Signs: Temp Pulse Resp BP Pulse Ox 98.0 F 61 18 148/66 H 97 11/14/17 16:00 11/14/17 16:00 11/14/17 16:00 11/14/17 16:00 11/14/17 16:00 Intake & Output 11/13/17 11/14/17 11/15/17 00:59 00:59 00:59 Intake Total 1790 1207 574 Output Total 2350 1325 950 Balance -560 118 -376 Weight 79.1 kg 75.7 kg 76.2 kg General appearance: PRESENT: no acute distress, cooperative, well-developed, well-nourished Head exam: PRESENT: atraumatic, normocephalic Eye exam: PRESENT: conjunctiva pink, EOMI, PERRLA. ABSENT: scleral icterus Respiratory exam: PRESENT: clear to auscultation trinity. ABSENT: rales, rhonchi, wheezes Cardiovascular exam: PRESENT: irregular rhythm. ABSENT: diastolic murmur, rubs , systolic murmur Pulses: PRESENT: normal dorsalis pedis pul GI/Abdominal exam: PRESENT: normal bowel sounds, soft. ABSENT: distended, guarding, mass, organolmegaly, rebound, tenderness Extremities exam: PRESENT: +1 edema - Right lower extremity Neurological exam: PRESENT: awake, CN II-XII grossly intact Psychiatric exam: PRESENT: appropriate affect, normal mood Results Laboratory Results: 11/13/17 05:08 11/11/17 18:50 Sputum Gram Stain - Final 11/11/17 18:50 Sputum Sputum Culture - Final NORMAL DOMITILA 11/11/17 11/12/17 11:27 04:27 Troponin I 0.133 NT-Pro-B Natriuret Pep 3580 H Impressions: Chest X-Ray 11/11/17 07:19 IMPRESSION: Mild interstitial edema at the lung bases with trace pleural effusions. Assessment & Plan - Diagnosis (1) COPD (chronic obstructive pulmonary disease) Is this a current diagnosis for this admission?: Yes (2) Hypertension Qualifiers: Hypertension type: essential hypertension Qualified Code(s): I10 - Essential (primary) hypertension Is this a current diagnosis for this admission?: Yes (3) CAD (coronary artery disease) Qualifiers: Is this a current diagnosis for this admission?: Yes (4) Periprosthetic fracture around internal prosthetic right hip joint Qualifiers: Encounter type: initial encounter Qualified Code(s): M97.01XA - Periprosthetic fracture around internal prosthetic right hip joint, initial encounter; T84.040A - Periprosthetic fracture around internal prosthetic right hip joint, initial encounter Is this a current diagnosis for this admission?: Yes (5) Acute diastolic CHF (congestive heart failure), NYHA class 3 Is this a current diagnosis for this admission?: Yes (6) Hypernatremia Is this a current diagnosis for this admission?: Yes Plan: We will give patient an infusion of D5W at 50 mL/h tonight Repeat BMP in a.m. (7) Bradycardia Is this a current diagnosis for this admission?: Yes Plan: Likely secondary to beta-blockers Decreased Coreg to 12.5 mg p.o. twice daily - Time Time Spent with patient: We will reevaluate patient in a.m. for possible discharge Time Spent with patient: 15-24 minutes
[2017-11-14] MEDS: DEXTROSE 5%-WATER 1000 ML 1,000 ML IV PRN (20:56)
[2017-11-14] MEDS: TEMAZEPAM 7.5 MG CAPSULE PO SCH (21:37)
[2017-11-14] MEDS: ISOSORBIDE MONONITRATE 60 MG TAB.ER.24H PO SCH (21:37)
[2017-11-14] MEDS: SIMVASTATIN 10 MG TABLET PO SCH (21:37)
[2017-11-15] MEDS ORDERED: LANSOPRAZOLE 15 MG TAB.RAP.DR PO SCH (06:00)
[2017-11-15 07:26] LABS: ANION GAP 10 (5-19); BLOOD UREA NITROGEN 34 mg/dL (7-20); CALCIUM 9.2 mg/dL (8.4-10.2); CARBON DIOXIDE 31 mmol/L (22-30); CHLORIDE 106 mmol/L (98-107); GLUCOSE 107 mg/dL (75-110); SODIUM 146.7 mmol/L (137-145)
[2017-11-15] MEDS: IPRATROPIUM/ALBUTEROL 0.5-2.5 MG/3 ML AMPUL NEB SCH ×2 (08:32→12:07)
[2017-11-15] MEDS: CARVEDILOL 12.5 MG TABLET PO SCH (09:14)
[2017-11-15] MEDS: FUROSEMIDE 40 MG TABLET PO SCH (09:15)
[2017-11-15] MEDS: LISINOPRIL 10 MG TABLET PO SCH (09:15)
[2017-11-15] MEDS: PREDNISONE 20 MG TABLET PO SCH (09:16)
[2017-11-15] MEDS: CLOPIDOGREL BISULFATE 75 MG TABLET PO SCH (09:17)
[2017-11-15] MEDS: DOCUSATE SODIUM 100 MG CAPSULE PO SCH (09:18)
[2017-11-15] MEDS: DEXTROSE 5%-WATER 1000 ML 1,000 ML IV PRN (09:20)
[2017-11-15] MEDS: ENOXAPARIN SODIUM INJ 40 MG/0.4 ML DISP.SYRIN SUBCUT SCH (09:21)
[2017-11-15 13:57] VITALS: BP 148/66
--- NOTE | 2017-11-15 15:03 | PDOC DISCHARGE SUMMARY ---
General - Admit/Disc Date/PCP Admission Date/Primary Care Provider: 11/11/17 11:[address] NICHOLE CHILEL Discharge Date: 11/15/17 - Discharge Diagnosis (1) COPD (chronic obstructive pulmonary disease) Is this a current diagnosis for this admission?: Yes (2) Hypertension Is this a current diagnosis for this admission?: Yes (3) CAD (coronary artery disease) Is this a current diagnosis for this admission?: Yes (4) Periprosthetic fracture around internal prosthetic right hip joint Is this a current diagnosis for this admission?: Yes (5) Acute diastolic CHF (congestive heart failure), NYHA class 3 Is this a current diagnosis for this admission?: Yes (6) Hypernatremia Is this a current diagnosis for this admission?: Yes (7) Bradycardia Is this a current diagnosis for this admission?: Yes - Additional Information Resuscitation Status: Do Not Resuscitate Discharge Diet: Cardiac Discharge Activity: Activity As Tolerated, Balance Activity w/Rest Prescriptions: Carvedilol [Coreg 12.5 mg Tablet] 12.5 mg PO Q12 30 Days #60 tablet Prednisone [Deltasone 20 mg Tablet] 20 mg PO DAILY 8 Days #8 tablet Home Medications: Amlodipine Besylate [Norvasc 10 mg Tablet] 10 mg PO DAILY 11/11/17 Clopidogrel Bisulfate [Plavix 75 mg Tablet] 75 mg PO DAILY 11/11/17 Furosemide [Lasix 40 mg Tablet] 40 mg PO DAILY 11/11/17 Isosorbide Mononitrate [Imdur 60 mg Tablet.er] 60 mg PO DAILY 11/11/17 Lisinopril [Zestril] 40 mg PO DAILY 11/11/17 Simvastatin [Zocor 20 mg Tablet] 20 mg PO QHS 11/11/17 Umeclidinium Brm/Vilanterol Tr [Anoro Ellipta 62.5-25 Mcg INH] 1 puff IH DAILY 11/11/17 Carvedilol [Coreg 12.5 mg Tablet] 12.5 mg PO Q12 30 Days #60 tablet 11/15/17 Prednisone [Deltasone 20 mg Tablet] 20 mg PO DAILY 8 Days #8 tablet 11/15/17 History of Present Illness Patient complains of: COUGH AND SHORTNESS OF BREATH History of Present Illness: MARIANA MARIN is a 86 year old male The patient is a very pleasant 86 yr old male with a history of Diastolic CHF CAD s/p CABG x4 Hypertension Hyperlipidemia COPD not on home oxygen prior CVA L carotid endarterectomy He presented to the hospital with dyspnea, cough and rhinorrhea. Chest xray showed increased pulm vascular congestion and he was hypoxic on RA. He was treated with nebs and IV Lasix and referred for admission. He reports compliance with his home meds with no recent changes. Hospital Course Hospital Course: (1) COPD (chronic obstructive pulmonary disease) Patient was treated with nebs steroids continued on his prior medications His respiratory status was stable (2) Hypertension Home meds were continued Blood pressure was stable (3) CAD (coronary artery disease) Patient is status post coronary artery bypass surgery He did not have any chest pain There was no evidence of an acute coronary syndrome (4) Periprosthetic fracture around internal prosthetic right hip joint Patient was evaluated by Dr. Gaytan who felt that it was better to manage the fracture nonoperatively as the risk of surgery was too high (5) acute diastolic CHF on admission Patient was diuresed with Lasix and improved (6) bradycardia On the monitor patient was noted to have episodes of bradycardia with a rate dropping to the low 40s We decreased Coreg to 12.5 mg twice daily Patient will be followed in the office by Dr. Felton Physical Exam Vital Signs: Temp Pulse Resp BP Pulse Ox 97.8 F 61 16 148/66 H 97 11/15/17 13:55 11/15/17 13:55 11/15/17 13:55 11/15/17 13:55 11/15/17 13:55 Intake & Output 11/14/17 11/15/17 11/16/17 00:59 00:59 00:59 Intake Total 1207 574 657 Output Total 1323 950 625 Balance -118 -376 32 Weight 75.7 kg 76.2 kg 74.2 kg General appearance: PRESENT: no acute distress, cooperative, well-developed, well-nourished Head exam: PRESENT: atraumatic, normocephalic Eye exam: PRESENT: conjunctiva pink, EOMI, PERRLA. ABSENT: scleral icterus Respiratory exam: PRESENT: clear to auscultation trinity. ABSENT: rales, rhonchi, wheezes Cardiovascular exam: PRESENT: irregular rhythm. ABSENT: diastolic murmur, rubs , systolic murmur Pulses: PRESENT: normal dorsalis pedis pul GI/Abdominal exam: PRESENT: normal bowel sounds, soft. ABSENT: distended, guarding, mass, organolmegaly, rebound, tenderness Extremities exam: PRESENT: +1 edema - Right lower extremity Neurological exam: PRESENT: awake, CN II-XII grossly intact Psychiatric exam: PRESENT: appropriate affect, normal mood Results Laboratory Results: 11/15/17 06:37 11/15/17 06:37 Sodium 146.7 H Potassium 4.0 Chloride 106 Carbon Dioxide 31 H Anion Gap 10 BUN 34 H Creatinine 1.06 Est GFR ( Amer) > 60 Est GFR (Non-Af Amer) > 60 Glucose 107 Calcium 9.2 11/11/17 11/12/17 11:27 04:27 Troponin I 0.133 NT-Pro-B Natriuret Pep 3580 H Impressions: Chest X-Ray 11/11/17 07:19 IMPRESSION: Mild interstitial edema at the lung bases with trace pleural effusions. Qualifiers - * PATIENT BEING DISCHARGED WITH ANY OF THE FOLLOWING DIAGNOSIS: Heart Failure HF Pt being discharged on ACEI for LVEF less than 40%?: Yes HF Pt being discharged on ARBS for LVEF less than 40%?: No Reason(s) for not prescribing ARBS:: Procedure not indicated - not on ARBS on admission will be followed by cardiology diatolic CHF HF Pt discharged on evidence-based Beta Stacia:: Yes Plan Discharge Plan: Follow-up with Dr. Felton as an outpatient Time Spent: Greater than 30 Minutes
== END 2017-11-15 15:00 | disposition home health service (06) | DRG 190 ==
LOC: ER 07:02 → EH 11:22 → 4N 14:39
PROVIDERS: ADMIT Internal Medicine; ATTEND Internal Medicine
PROC: 3E0F73Z Introduction of Anti-inflammatory into Respiratory Tract, Via Natural or Artificial Opening (ICD-10-PCS; principal; 2017-11-11)
DX: J44.1 Chronic obstructive pulmonary disease with (acute) exacerbation (principal); I50.31 Acute diastolic (congestive) heart failure; M97.01XA Periprosthetic fracture around internal prosthetic right hip joint, initial encounter; E87.0 Hyperosmolality and hypernatremia; T84.030A Mechanical loosening of internal right hip prosthetic joint, initial encounter; I11.0 Hypertensive heart disease with heart failure; Z66 Do not resuscitate; I25.10 Atherosclerotic heart disease of native coronary artery without angina pectoris; R00.1 Bradycardia, unspecified; E78.00 Pure hypercholesterolemia, unspecified; F32.9 Major depressive disorder, single episode, unspecified; Z96.641 Presence of right artificial hip joint; Z79.899 Other long term (current) drug therapy; Z95.1 Presence of aortocoronary bypass graft; Z86.73 Personal history of transient ischemic attack (TIA), and cerebral infarction without residual deficits; Z87.891 Personal history of nicotine dependence; Z88.6 Allergy status to analgesic agent; Z79.02 Long term (current) use of antithrombotics/antiplatelets; Z82.49 Family history of ischemic heart disease and other diseases of the circulatory system
CPT/HCPCS: 36415; 71045; 80048; 80053; 82550; 82553; 82962; 83690; 83735; 83880; 84100; 84443; 84484; 85025; 85610; 87070; 87205; 93005; 93010; 94640; 96365; 96375; 99285; J1650; J1940; J3475; J3490; J7060; J7512; J7620

== ENCOUNTER → 2018-04-25 | Outpatient (CLI) | payer MEDICARE ==
--- NOTE | 2018-04-25 13:13 | RADIOLOGY REPORT (SQ) ---
EXAM DESCRIPTION: HIP RIGHT AP/LATERAL COMPLETED DATE/TIME: 04/25/2018 1:01 pm REASON FOR STUDY: PAIN IN RIGHT HIP M54.2 CERVICALGIA M25.551 PAIN IN RIGHT HIP COMPARISON: None. NUMBER OF VIEWS: Two views. TECHNIQUE: AP and frog-leg view of the right hip. LIMITATIONS: None. FINDINGS: MINERALIZATION: Osteopenia. RIGHT HIP: There are postsurgical changes in the right hip with a total prosthesis in place. 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 No acute fracture or dislocation. OPPOSITE HIP: No fracture or dislocation. No worrisome bone lesions. SOFT TISSUES: No findings. OTHER: No other significant finding. IMPRESSION: Postsurgical changes in the right hip. No acute fracture or dislocation. TECHNICAL DOCUMENTATION: JOB ID: [id number] [employer]- All Rights Reserved Reading location - IP/workstation name: [email or web address]
--- NOTE | 2018-04-25 13:13 | RADIOLOGY REPORT (SQ) ---
EXAM DESCRIPTION: C SP 3 VWS OR LESS COMPLETED DATE/TIME: 04/25/2018 1:01 pm REASON FOR STUDY: CERVICALGIA M54.2 CERVICALGIA M25.551 PAIN IN RIGHT HIP COMPARISON: None. NUMBER OF VIEWS: Two views. TECHNIQUE: AP and lateral radiographic images acquired of the cervical spine. LIMITATIONS: None. FINDINGS: MINERALIZATION: Normal. ALIGNMENT: There is reversal of the normal cervical lordosis. VERTEBRAE: Vertebral bodies of normal height. DISCS: There is multilevel disc space narrowing with prominent anterior osteophytes throughout the ce rvical spine. HARDWARE: None in the spine. SOFT TISSUES: No masses or calcifications. Lung apices clear. OTHER: No other significant finding. IMPRESSION: Multilevel spondylosis. Reversal of the normal cervical lordosis. TECHNICAL DOCUMENTATION: JOB ID: [id number] [employer]- All Rights Reserved Reading location - IP/workstation name: [email or web address]
== END ==
LOC: OD 12:24
PROVIDERS: ATTEND Family Medicine
DX: M25.551 Pain in right hip (principal); M54.2 Cervicalgia
CPT/HCPCS: 72040

== ENCOUNTER 2018-05-14 10:44 | Day surgery (SDC) | payer MEDICARE ==
[~2018-05-14 10:44] MED LIST: KETOROLAC TROMETHAMINE 0.45% 4 DROP/0.4 ML DROPERETTE OS PRN
[2018-05-14] MEDS: TETRACAINE HCL 0.5% OPH SOLN 0.6 ML DROPERETTE OS PRN ×3 (11:07→11:44)
[2018-05-14] MEDS: CYCLOPENTOLATE 0.2%/PHENYLEPHRINE 1% OPH SOLN 2 ML OS PRN ×3 (11:08→11:33)
[2018-05-14] MEDS: BESIFLOXACIN HCL 0.6% OPH SUSP 5 ML BOTTLE OS PRN ×4 (11:08→12:32)
[2018-05-14] MEDS: TROPICAMIDE 1% OPH SOLN 3 ML OS PRN ×3 (11:08→11:33)
[2018-05-14] MEDS ORDERED: TRYPAN BLUE 0.06 % OPH SOLN 0.5 ML DISP.SYRIN ONE (11:28)
[2018-05-14] MEDS ORDERED: MIDAZOLAM 2 MG/2 ML INJ ONE (11:34)
[2018-05-14] MEDS: CHONDR SU A NA/HYALUR INTRAOC KIT (SURGICARE) ONE ×2 (11:58)
[2018-05-14] MEDS: LIDOCAINE 1%/PHENYLEPHRINE 1.5% 1 ML VIAL ONE ×2 (11:58)
[2018-05-14] MEDS: EPINEPHRINE INJ/PF 1 MG/1 ML AMPULE ONE ×2 (11:58)
[2018-05-14] MEDS: TOBRAMYCIN SULFATE/DEXAMETH OPH OINTMENT 3.5 GM ONE ×2 (12:32)
[2018-05-14] MEDS ORDERED: CHONDR SU A NA/HYALUR SOD 0.5 ML DISP.SYRIN ONE (12:36)
== END 2018-05-14 13:20 | disposition home or self-care (01) ==
LOC: SC 10:44
PROVIDERS: ATTEND Ophthalmology
DX: H25.12 Age-related nuclear cataract, left eye (principal); H40.1123 Primary open-angle glaucoma, left eye, severe stage; M19.90 Unspecified osteoarthritis, unspecified site; J44.9 Chronic obstructive pulmonary disease, unspecified; I25.10 Atherosclerotic heart disease of native coronary artery without angina pectoris; I10 Essential (primary) hypertension; E78.00 Pure hypercholesterolemia, unspecified; Z79.51 Long term (current) use of inhaled steroids; Z79.899 Other long term (current) drug therapy; Z88.6 Allergy status to analgesic agent; Z86.73 Personal history of transient ischemic attack (TIA), and cerebral infarction without residual deficits; Z79.82 Long term (current) use of aspirin
CPT/HCPCS: 66982; V2632; J2250; J3490 ×3; A9270; J0171; J2370; 142

== ENCOUNTER 2018-05-19 12:46 | Day surgery (SDC) | payer MEDICARE ==
[~2018-05-19 12:46] MED LIST changes: +CHONDR SU A NA/HYALUR INTRAOC KIT (SURGICARE) ONE; +EPINEPHRINE INJ/PF 1 MG/1 ML AMPULE ONE; +LIDOCAINE 1% INJ-PF (10 MG/ML) 30 ML SDV ONE
[2018-05-19] MEDS: TETRACAINE HCL 0.5% OPH SOLN 0.6 ML DROPERETTE OS PRN ×3 (13:08→13:34)
[2018-05-19] MEDS: BESIFLOXACIN HCL 0.6% OPH SUSP 5 ML BOTTLE OS PRN ×4 (13:09→13:57)
[2018-05-19] MEDS ORDERED: MIDAZOLAM 2 MG/2 ML INJ ONE (13:14)
[2018-05-19] MEDS: TOBRAMYCIN SULFATE/DEXAMETH OPH OINTMENT 3.5 GM ONE ×2 (13:57)
== END 2018-05-19 14:40 | disposition home or self-care (01) ==
LOC: SC 12:46
PROVIDERS: ATTEND Ophthalmology
DX: Z98.42 Cataract extraction status, left eye (principal); T81.89XA Other complications of procedures, not elsewhere classified, initial encounter; Y83.8 Other surgical procedures as the cause of abnormal reaction of the patient, or of later complication, without mention of misadventure at the time of the procedure; J44.9 Chronic obstructive pulmonary disease, unspecified; M19.90 Unspecified osteoarthritis, unspecified site; I25.10 Atherosclerotic heart disease of native coronary artery without angina pectoris; I10 Essential (primary) hypertension; E78.00 Pure hypercholesterolemia, unspecified; Z96.641 Presence of right artificial hip joint; Z79.51 Long term (current) use of inhaled steroids; Z79.899 Other long term (current) drug therapy; Z87.891 Personal history of nicotine dependence; Z88.6 Allergy status to analgesic agent; Z86.73 Personal history of transient ischemic attack (TIA), and cerebral infarction without residual deficits
CPT/HCPCS: 66250; J2250; J3490 ×3; A9270 ×2; J0171; 140

== ENCOUNTER → 2019-03-24 | Outpatient (CLI) | payer MEDICARE ==
[2019-03-24 11:28] LABS: HEMATOCRIT 38.8 % (37.9-51.0); HEMOGLOBIN 12.3 g/dL (13.5-17.0); MEAN CORPUSCULAR HEMOGLOBIN 21.8 pg (27.0-33.4); MEAN CORPUSCULAR HGB CONC 31.6 g/dL (32.0-36.0); MEAN CORPUSCULAR VOLUME 69 fl (80-97); RED BLOOD COUNT 5.62 10^6/uL (4.35-5.55); RED CELL DISTRIBUTION WIDTH 18.8 % (11.5-14.0); WHITE BLOOD COUNT 5.3 10^3/uL (4.0-10.5)
[2019-03-24 11:41] LABS: ALBUMIN 4.5 g/dL (3.5-5.0); ALKALINE PHOSPHATASE 85 U/L (38-126); ANION GAP 8 (5-19); ASPARTATE AMINO TRANSFERASE 30 U/L (17-59); BILIRUBIN,DIRECT 0.4 mg/dL (0.0-0.4); BILIRUBIN,TOTAL 0.9 mg/dL (0.2-1.3); BLOOD UREA NITROGEN 25 mg/dL (7-20); CALCIUM 9.5 mg/dL (8.4-10.2); CARBON DIOXIDE 27 mmol/L (22-30); CHLORIDE 108 mmol/L (98-107); GLUCOSE 97 mg/dL (75-110); POTASSIUM 4.9 mmol/L (3.6-5.0); TOTAL PROTEIN 7.5 g/dL (6.3-8.2)
[2019-03-24 12:06] LABS: ABSOLUTE LYMPHOCYTES# (MANUAL) 0.8 10^3/uL (0.5-4.7); ABSOLUTE MONOCYTES # (MANUAL) 0.4 10^3/uL (0.1-1.4); BASOPHILS % (MANUAL) 2 % (0-2); EOSINOPHILS % (MANUAL) 5 % (0-6); LYMPHOCYTES % (MANUAL) 15 % (13-45); MONOCYTES % (MANUAL) 7 % (3-13); SEGMENTED NEUTROPHILS % (MAN) 70 % (42-78); TOTAL CELLS COUNTED 100
[2019-03-24 12:10] LABS: ANISOCYTOSIS 1+; SCHISTOCYTES SLIGHT
[2019-03-24 12:11] LABS: TOXIC VACUOLATION PRESENT
[2019-03-24 12:16] LABS: OVALOCYTES SLIGHT; POIKILOCYTOSIS 1+; TARGET CELLS SLIGHT
[2019-03-24 12:17] LABS: HYPOCHROMASIA 2+
[2019-03-24 12:30] LABS: PLATELET ESTIMATE 151 10^3/uL (150-450)
[2019-03-24 12:39] LABS: PLATELET COMMENT ADEQUATE
== END ==
LOC: OD 10:33
PROVIDERS: ATTEND Family Medicine
DX: R63.4 Abnormal weight loss (principal); Z12.5 Encounter for screening for malignant neoplasm of prostate
CPT/HCPCS: 36415; 80053; 84153; 84443; 85025

== ENCOUNTER → 2020-04-26 | Outpatient (CLI) | payer MEDICARE ==
[2020-04-26 11:43] VITALS: BP 146/67
--- NOTE | 2020-04-26 11:43 | ER [facility] ASSESSMENT REPORT ---
Intake - In the Last 14 days Have you traveled outside [place]?: No Have you been in close contact with someone CONFIRMED: No Worked in Healthcare?: No - Symptoms Subjective Fever([place] feverish): No Chills: No Muscule Aches: No Runny Nose: No Sore Throat: No Cough (New or worsening chronic cough): No Shortness of breath: No Nausea or Vomiting: No Headache: No Abdominal Pain: No Diarrhea(3 or more loose stools in last 24 hours): No - Do you have any of the following Chronic lung disease: Asthma or emphysema or COPD: Yes Chronic Lung Disease Comment: copd Cystic Fibrosis: No Diabetes: No High Blood Pressure: Yes Cardiovascular Disease: No Chronic Kidney Disease: Yes Chronic Liver Disease: No Chronic blood disorder like Sickle Cell Disease: No Weak immune system due to disease or medication: No Neurologic condition that limits movement: No Developmental delay - Moderate to Severe: No Recent (within past 2 weeks) or current : No Morbid Obesity (>100 pounds over ideal weight): No - Objective Temperature: 97.3 F Pulse Rate: 59 Respiratory Rate: 16 Blood Pressure: 146/67 O2 Sat by Pulse Oximetry: 97 Objective: Given above, testing performed: If Testing Performed: Test Specimen Type Sent to General - General Information source: Patient, Relative Notes: Patient presents to the [facility] for screening for the coronavirus. Patient denies any symptoms although his spouse has been very sick recently. Patient has a history of high blood pressure and COPD. 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 Denies: Hx Open Heart Surgery, Hx Pacemaker Physical Exam - Notes Notes: The patient was evaluated during the global Covid 19 pandemic, and that diagnosis was suspected/considered upon their initial presentation. Their evaluation, treatment and testing was consistent with current guidelines for patients who present with complaints or symptoms that may be related to Covid 19. Full physical exam could not be performed due to covid 19 isolation protocols. Constitutional: Nontoxic appearance, no acute distress Eyes: Nonicteric, extraocular movements intact, sclera clear Cardiovascular: Heart rate and rhythm regular, no JVD Respiratory: Breath sounds clear bilaterally, nonlabored breathing, no use of accessory muscles, no tachypnea Gastrointestinal: Abdomen not distended Muculoskeletal: Moves all extremities well Skin: Normal color Neuro: Awake alert oriented, normal speech Psych: Normal mood and affect Patient Education/Counseling Counseling/Education: Patient was provided with discharge information including: As a person under investigation for Covid 19, the [facility] of Health and Human Services, division of public health advises you to adhere to the following guidance until your test results are reported to you. If your test result is positive, you will receive additional information from your provider and your local health department at that time. Remain at home until you are cleared by the health provider or public health authorities. Keep a log of visitors to your home, notify any visitors to your home of your isolation status. If you plan to move to a new address or leave the county, notify the local health department in your County. Call your doctor or seek care if you have an urgent medical need. Before seeking medical care, call ahead to get instructions from the provider before ar riving at the medical office clinic or hospital. Notify them that you are being tested for the virus that causes Covid 19 so that arrangements can be made, as necessary, to prevent transmission to others in the healthcare setting. Next, notify the local health department in your county. If a medical emergency arises and you need to call 911, inform the first responders that you are being tested for the virus that causes Covid 19. Next, notify the local health department in your county. [facility] Discharge - Discharge Clinical Impression: Encounter for screening laboratory testing for COVID-19 virus Condition: Stable Disposition: Home; Selfcare
== END ==
LOC: RDC 11:01
PROVIDERS: ATTEND Nurse Practitioner Family
DX: Z03.818 Encounter for observation for suspected exposure to other biological agents ruled out (principal)
CPT/HCPCS: U0003; C9803; 87635

== ENCOUNTER 2020-07-04 12:38 | Emergency (ER) | payer MEDICARE ==
--- NOTE | 2020-07-04 13:48 | ER Document Report ---
ED General - General Chief Complaint: Trouble Voiding Stated Complaint: UNABLE TO URINATE Time Seen by Provider: 07/04/20 13:32 Primary Care Provider: DIANE GAONA MD [Primary Care Provider] - Follow up as needed TRAVEL OUTSIDE OF THE [place] IN LAST 30 DAYS: No - HPI Notes: Chief complaint: Difficulty voiding History of present illness: 89-year-old male followed by Dr. Bianchi presents with difficulty voiding and total inability to void since last night. Denies prior urinary retention but has had some hesitancy in the past. Denies burning with urination. Denies fever chills. Denies back pain. 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 Family members advised nursing staff that he has lost a substantial amount of weight within the last 6 months. Prior history is remarkable for hypertension and COPD. He is a former smoker but no longer smokes. He denies alcohol consumption. - Related Data Allergies/Adverse Reactions: aspirin Allergy (Severe, Verified 07/04/20 13:09) Anaphylaxis Past Medical History - General Information source: Patient, [facility] Records - Social History Smoking Status: Former Smoker Frequency of alcohol use: None Drug Abuse: None Lives with: Family Family History: Reviewed & Not Pertinent, Other - glaucoma - Past Medical History Cardiac Medical History: Reports: Hx Congestive Heart Failure, Hx Coronary Artery Disease, Hx Hypercholesterolemia, Hx Hypertension - MEDICATED Denies: Hx Heart Attack Pulmonary Medical History: Reports: Hx COPD Denies: Hx Asthma Neurological Medical History: Reports: 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 Denies: Hx Open Heart Surgery, Hx Pacemaker Review of Systems - Review of Systems Notes: Constitutional: Negative for fever. HENT: Negative for sore throat. Eyes: Negative for visual changes. Cardiovascular: Negative for chest pain. Respiratory: Negative for shortness of breath. Gastrointestinal: Negative for abdominal pain, vomiting or diarrhea. Genitourinary: As per HPI. Musculoskeletal: Negative for back pain. Skin: Negative for rash. Neurological: Negative for headaches, weakness or numbness. 10 point ROS negative except as marked above and in HPI. Physical Exam - Vital signs Vitals: Temp Pulse Resp BP Pulse Ox 97.9 F 90 18 112/66 100 07/04/20 13:00 07/04/20 13:00 07/04/20 13:00 07/04/20 13:00 07/04/20 13:00 - Notes Notes: GENERAL: Elderly man who appears mildly restless. SKIN: Good turgor no rashes. HEAD: Normocephalic atraumatic. EYES: Bilateral arcus senilis. PERRLA. EOMI. patient is legally blind. Conjunctivae and sclerae clear. EARS: Bilateral hearing impairment. CANALS AND TMS CLEAR. NOSE: CLEAR. MOUTH: Moist mucosa. Good dentition. No stridor or edema. No drooling. NECK: Supple. No masses or thyromegaly. No adenopathy. Carotids 2+ without bruits. No JVD. BACK: Symmetrical without tenderness. CHEST: Respirations unlabored. Breath sounds clear and symmetrical. HEART: Regular rhythm. No murmur gallop or rub. ABDOMEN: Bladder is palpably distended but nontender. Soft without hepatosplenomegaly or rebound. Bowel sounds normally active. No bruits. GENITALIA: Deferred. EXTREMITIES: No edema. No calf tenderness. Cap refill less than 1.5 seconds. Dorsalis pedis and posterior tibial pulses 3+ and symmetrical. NEUROLOGICAL: GCS 14. Patient is alert and appropriately oriented to person and place but not to date or date. fluent speech. Cranial nerves II through XII intact. Sensorimotor and cerebellar normal. Normal tone. PSYCHIATRIC: Appropriate affect. Course - Re-evaluation Re-evalutation: This gentleman came in with symptoms of bladder outlet obstruction. Man catheter was placed with a residual urine of about 250 cc. His creatinine is 2.0. His potassium was mildly elevated 5.3. CO2 is normal. He is not vomiting or febrile. He had some red cells in his urine and urine has been cultured. He does not have any significant pyuria. Family is very concerned about COVID-19 e xposure in the hospital and does not want him admitted under any circumstances. We are going to send him home on some Flomax and Cipro with a Man catheter and leg bag and refer him to urology on outpatient basis. He will be referred to urology for follow-up. His PSA is elevated and I have stressed to family the importance of early follow-up because of potential concern about neoplastic process. Findings, clinical impression and plan of treatment have been discussed with patient/family. Understanding of current findings and recommendations has been acknowledged by them and there is agreement regarding disposition and follow-up. 07/04/20 15:35 07/04/20 15:39 07/04/20 15:44 - Vital Signs Vital signs: Temp Pulse Resp BP Pulse Ox 97.9 F 90 18 112/66 100 07/04/20 13:00 07/04/20 13:00 07/04/20 13:00 07/04/20 13:00 07/04/20 13:00 - Laboratory Results Result Diagrams: 07/04/20 14:00 07/04/20 14:00 Laboratory Results Interpreted: 07/04/20 07/04/20 07/04/20 14:00 14:00 14:25 Hgb 10.5 L Hct 32.2 L MCV 66 L MCH 21.5 L RDW 18.6 H Lymph % (Auto) 5.3 L Absolute Lymphs (auto) 0.4 L Seg Neutrophils % 83.4 H Potassium 5.3 H Carbon Dioxide 21 L BUN 40 H Creatinine 2.18 H Est GFR ( Amer) 35 L Est GFR (MDRD) Non-Af 29 L Albumin 3.1 L Prostate Specific Ag 6.790 H Urine Protein 30 H Urine Blood MODERATE H Urine Ascorbic Acid 40 H Critical Laboratory Results Reviewed: Yes Attending or Supervising Physician who Reviewed Labs: ARIEL CASTANEDA E - Radiology Results Critical Radiology Results Reviewed: No Critical Results Discharge - Discharge Clinical Impression: Symptom of bladder outlet obstruction, Renal insufficiency Disposition: HOME, SELF-CARE Additional Instructions: Man Catheter Care Tube Position: Keep the catheter connected to the drainage tubing at all times. Avoid pulling on the catheter. Keep the drainage tube taped to the mid- thigh, on top of your leg (not underneath it). Be sure there are no kinks or l oops in the tube. Keep the drainage bag below the bladder. When in bed, the drainage bag should hang below the abdomen but should not lie on the floor. The drainage bag has hooks at the top so it can be hung on a chair or bed. Daily Cleaning: Wash your hands with soap and water before and after caring for your catheter. Twice a day, clean yourself where the catheter goes into the urethra. Use a warm, soapy wash cloth to clean around the urethral opening and the first few inches of the catheter. Females should wash from front to back to decrease the risk of infection from fecal material. After washing with soap, rinse the area with water. Do not put powder around the catheter. Apply ointment only if instructed by your doctor or nurse. Follow up if you develop fever or chills, flank or abdominal pain, blood in the urine, or if urine is not draining into the catheter. Your prostate gland is enlarged and you have an abnormal elevation of your PSA test which indicates need for further evaluation by a urologist as soon as possible. We are providing the name and telephone number for a urologist for you. Take prescribed medications as directed. Return here as needed for new or worsening symptoms: Pain that is worsening or unimproved Uncontrolled vomiting High fever or shaking chills Overall worsening Prescriptions: Ciprofloxacin HCl [Cipro 500 mg Tablet] 500 mg PO DAILY 10 Days #10 tablet Tamsulosin HCl [Flomax 0.4 mg Cap.sr] 0.4 mg PO DAILY #7 cap.sr.24h Referrals: DIANE GAONA MD [Primary Care Provider] - Follow up as needed CAROLANN JASMINE MD [NO LOCAL MD] - Follow up as needed
--- NOTE | 2020-07-04 14:12 | RADIOLOGY REPORT (SQ) ---
EXAM DESCRIPTION: CHEST SINGLE VIEW IMAGES COMPLETED DATE/TIME: 07/04/2020 2:04 pm REASON FOR STUDY: weight loss COMPARISON: None. EXAM PARAMETERS: NUMBER OF VIEWS: One view. TECHNIQUE: Single frontal radiographic view of the chest acquired. RADIATION DOSE: NA LIMITATIONS: None. FINDINGS: LUNGS AND PLEURA: There is hyperexpansion. Minimal basilar atelectasis. No pneumothorax or effusions. MEDIASTINUM AND HILAR STRUCTURES: No masses. Contour normal. HEART AND VASCULAR STRUCTURES: Heart normal in size. Normal vasculature. BONES: No acute findings. HARDWARE: Sternotomy wires are in place. OTHER: No other significant finding. IMPRESSION: Minimal basilar atelectasis. No other significant findings. TECHNICAL DOCUMENTATION: JOB ID: [id number]- All Rights Reserved Reading location - IP/workstation name: [email or web address]
[2020-07-04 14:26] LABS: ABSOLUTE EOSINOPHILS # (AUTO) 0.1 10^3/uL (0.0-0.6); ABSOLUTE LYMPHOCYTES (AUTO) 0.4 10^3/uL (0.5-4.7); ABSOLUTE MONOCYTES (AUTO) 0.7 10^3/uL (0.1-1.4); ABSOLUTE NEUT (AUTO) 5.9 10^3/uL (1.7-8.2); BASOPHILS % (AUTO) 0.2 % (0-2); EOSINOPHILS % (AUTO) 1.5 % (0-6); HEMATOCRIT 32.2 % (37.9-51.0); HEMOGLOBIN 10.5 g/dL (13.5-17.0); LYMPHOCYTES % (AUTO) 5.3 % (13-45); MEAN CORPUSCULAR HEMOGLOBIN 21.5 pg (27.0-33.4); MEAN CORPUSCULAR HGB CONC 32.5 g/dL (32.0-36.0); MEAN CORPUSCULAR VOLUME 66 fl (80-97); MONOCYTES % (AUTO) 9.6 % (3-13); PLATELET COUNT 234 10^3/uL (150-450); RED BLOOD COUNT 4.88 10^6/uL (4.35-5.55); RED CELL DISTRIBUTION WIDTH 18.6 % (11.5-14.0); SEGMENTED NEUTROPHILS % (AUTO) 83.4 % (42-78); TOTAL CELLS COUNTED % (AUTO) 100 %
[2020-07-04 14:47] LABS: ALBUMIN 3.1 g/dL (3.5-5.0); ALKALINE PHOSPHATASE 83 U/L (38-126); ANION GAP 11 (5-19); ASPARTATE AMINO TRANSFERASE 19 U/L (17-59); BILIRUBIN,DIRECT 0.3 mg/dL (0.0-0.4); BILIRUBIN,TOTAL 0.5 mg/dL (0.2-1.3); BLOOD UREA NITROGEN 40 mg/dL (7-20); CALCIUM 8.8 mg/dL (8.4-10.2); CARBON DIOXIDE 21 mmol/L (22-30); CHLORIDE 105 mmol/L (98-107); GLUCOSE 95 mg/dL (75-110); POTASSIUM 5.3 mmol/L (3.6-5.0); TOTAL PROTEIN 6.4 g/dL (6.3-8.2)
[2020-07-04 14:49] LABS: APPEARANCE,URINE CLEAR; BILIRUBIN,URINE NEGATIVE (NEGATIVE); COLOR,URINE YELLOW; GLUCOSE, URINE NEGATIVE (NEGATIVE); KETONES,URINE NEGATIVE (NEGATIVE); PROTEIN,URINE 30 mg/dL (NEGATIVE); URINE SPECIFIC GRAVITY 1.012; UROBILINOGEN,URINE NEGATIVE mg/dL (<2.0)
[2020-07-04 17:31] VITALS: BP 118/68
== END 2020-07-04 17:00 | disposition home or self-care (01) ==
LOC: ER 12:38
DX: N32.0 Bladder-neck obstruction (principal); N28.9 Disorder of kidney and ureter, unspecified; R33.9 Retention of urine, unspecified; F03.90 Unspecified dementia, unspecified severity, without behavioral disturbance, psychotic disturbance, mood disturbance, and anxiety; I10 Essential (primary) hypertension; J44.9 Chronic obstructive pulmonary disease, unspecified; Z87.891 Personal history of nicotine dependence; Z88.8 Allergy status to other drugs, medicaments and biological substances; I11.0 Hypertensive heart disease with heart failure; I50.9 Heart failure, unspecified; I25.10 Atherosclerotic heart disease of native coronary artery without angina pectoris; E78.00 Pure hypercholesterolemia, unspecified
CPT/HCPCS: 36415; 51702; 71045; 80053; 81001; 84153; 85025; 99284